=== PATIENT | male | born 1955 | race Caucasian/White ===

== ENCOUNTER → 2020-09-11 00:55 | Outpatient (CLI) | payer BC, SELFPAY ==
[2020-09-11 20:47] LABS: SARS-CoV-2 RNA PCR Negative
== END ==
PROVIDERS: Visit Provider Internal Medicine Gastroenterology
DX: Z01.812 Encounter for preprocedural laboratory examination (principal); Z20.822 Contact with and (suspected) exposure to COVID-19
CPT/HCPCS: C9803; U0003; U0005

== ENCOUNTER 2020-09-14 01:26 | Day surgery (SDC) | payer BC, SELFPAY ==
[2020-09-05 08:25] VITALS: BMI 27.0
[2020-09-14 07:49] VITALS: BP 154/98; PULSE 62; RESP 20; TEMP 36.7; O2SAT 100
[2020-09-14] MEDS: LACTATED RINGERS 1,000 ML 150 ML IV CONT (07:51)
--- NOTE | 2020-09-14 08:18 | PM.HPGS ---
History of Present Illness History of Present Illness Consent: Risks, benefits, and alternatives have been discussed and questions answered. Patient agrees to proceed with procedure. Chief complaint: hx of colon polyps Narrative: Jose C Preciado is a 64 year old male referred for colon cancer screening. He has had polyps removed in the past Review of Systems Review of Systems: All systems reviewed & are unremarkable except as noted in HPI and below PMFSH Social History Social History Substance use type: does not use Living arrangements: with family Gender identity (if verbalized by the patient): Male Meds Home Medications and Allergies Home Medications Medication Instructions Recorded Confirmed Type fluticasone propionate [Flonase] 1 spray INTRANASAL BID 09/05/20 09/14/20 History ketotifen fumarate [Zaditor] 2 drp EACH EYE DAILY 09/05/20 09/14/20 History Allergies Allergy/AdvReac Type Severity Reaction Status Date / Time No Known Allergies Allergy Verified 09/14/20 07:47 Vital Signs Vital Signs - 24 hr 09/14/20 07:49 Temperature 36.7 C Pulse Rate 62 Respiratory Rate 20 Blood Pressure 154/98 H Pulse Oximetry 100 Exam Resp: Auscultation: clear to auscultation bilaterally Cardio: Rate: regular rate Rhythm: regular rhythm GI: GI Palp: Yes Soft to palpation and No Tenderness to palpation present (GI) Assessment and Plan Assessment and plan (1) Colon cancer screening: Code(s): Z12.11 - Encounter for screening for malignant neoplasm of colon Status: Acute Assessment and Plan: Colonoscopy with possible biopsy or polypectomy or cautery or injection of substances.
--- NOTE | 2020-09-14 08:35 | P.PNAN_ITS ---
Anes - Initial Pre Proc Eval Procedure: Operation Date: 09/14/20 09:00 Proposed Procedures p Screening Colonoscopy - Miguelangel Fragoso MD Date/Time: 09/14/20 08:35 Surgeon: Miguelangel Fragoso MD Pre Op Diagnosis: hx of colon polyps Patient Data Age: 64 Gender: M Height: 6 ft 2 in Weight: 97 kg Last Vital Signs Temp 98.1 F 09/14/20 07:49 Pulse 62 09/14/20 07:49 Resp 20 09/14/20 07:49 BP 154/98 H 09/14/20 07:49 Pulse Ox 100 09/14/20 07:49 Allergies Allergy/AdvReac Type Severity Reaction Status Date / Time No Known Allergies Allergy Verified 09/14/20 07:47 Home Medications Medication Instructions Recorded Confirmed Type fluticasone propionate [Flonase] 1 spray INTRANASAL BID 09/05/20 09/14/20 History ketotifen fumarate [Zaditor] 2 drp EACH EYE DAILY 09/05/20 09/14/20 History Patient hx anesthesia problems: none Family hx anesthesia problems: none [facility] Past Medical History Medical History (Updated 09/14/20 @ 08:35 by Cooper Owusu MD) GERD (gastroesophageal reflux disease) Social History Social History Substance use type: does not use Living arrangements: with family Gender identity (if verbalized by the patient): Male Anes - Eval Final PreProcedure Day of Procedure 09/14/20 08:35 Patient weight: normal Heart: regular rate and rhythm Lungs: clear to auscultation Airway: Mallampati scale class II Neurological: alert and oriented Last oral intake: >/= 8 hours ASA classification: II Emergent: no Anesthetic plan: proceed Anesthesia type and monitoring: general GIVS and standard monitoring Informed Consent: The patient's anesthetic plan and its attendant risks and benefits were discussed with the patient/family/POA. Questions were solicited and answers provided to the satisfaction of the patient/family/POA.
[2020-09-14 09:04] VITALS: BP 121/83; PULSE 63; RESP 28; O2SAT 100
[2020-09-14 09:14] VITALS: BP 129/94; PULSE 62; RESP 18; O2SAT 100
[2020-09-14 09:24] VITALS: BP 144/93; PULSE 58; RESP 17; O2SAT 100
== END 2020-09-14 09:34 | disposition home or self-care (01) ==
PROVIDERS: Visit Provider Internal Medicine Gastroenterology
PROC: 0DJD8ZZ Inspection of Lower Intestinal Tract, Via Natural or Artificial Opening Endoscopic (ICD-10-PCS; CPT 45378; principal; 2020-09-14 09:00)
DX: Z12.11 Encounter for screening for malignant neoplasm of colon (principal); Z86.010 Personal history of colon polyps; K57.30 Diverticulosis of large intestine without perforation or abscess without bleeding; K64.8 Other hemorrhoids; K21.9 Gastro-esophageal reflux disease without esophagitis
CPT/HCPCS: 45378; J2704; J7120

== ENCOUNTER 2021-09-19 09:19 | Outpatient (CLI) | payer BC, SELFPAY ==
--- NOTE | ~2021-09-19 | MR_ITS ---
EXAMINATION: MR pelvis wo/w con DATE: 09/19/2021 11:06 INDICATION: Swelling of perineal tissue TECHNIQUE: Magnetic resonance imaging (MRI) of the pelvis was performed without and with 19 mL Multih ance intravenous contrast. Full-field sequences of the pelvis included axial and coronal T2-weighted SS FSE, coronal 2D FIESTA, axial T1-weighted FSPGR, axial dual-echo T1-weighted FSPGR and axial T1 we ighted LAVA. Small field of view sequences included axial, sagittal and coronal T2-weighted FSE cent ered on the uterus and adnexa. Postcontrast sequences included a time course axial T1-weighted LAVA with full-field of view of the pelvis. COMPARISON: None. FINDINGS: Bone alignment is normal with normal marrow signal throughout. Moderate sigmoid diverticulosis withou t adjacent inflammatory change to suggest diverticulitis. Remainder of the visualized bowels are norm al. Bladder is normal. Prostatomegaly measuring 5.0 x 4.0 cm. Small bilateral fat-containing inguinal hernias. There is a reticular pattern of low signal intensity with minimal associated non masslike e nhancement in the subcutaneous fat at the perineum without significant associated fluid signal to sug gest edema. No discrete nodules identified. No abscess or other abnormal fluid collections. No pathol ogically enlarged pelvic or inguinal lymphadenopathy. IMPRESSION: 1. Low signal intensity and mildly enhancing reticular pattern in the perineal subcutaneous fat which given the provided history of a single seed injury could represent mild fibrosis along the spectrum of progression towards perineal nodular induration. 2. Sigmoid diverticulosis. 3. Prostatomegaly. Reviewed, dictated and finalized at location A. IMPRESSION: 1. Low signal intensity and mildly enhancing reticular pattern in the perineal subcutaneous fat which given the provided history of a single seed injury could represent mild fibrosis along the spectrum of progression towards perineal nod ular induration. 2. Sigmoid diverticulosis. 3. Prostatomegaly.
[2021-09-19 10:09] LABS: Estimated Glomerular Filt Rate > 60
== END 2021-09-19 09:20 | disposition home or self-care (01) ==
PROVIDERS: Visit Provider Urology
DX: R22.2 Localized swelling, mass and lump, trunk (principal); N40.0 Benign prostatic hyperplasia without lower urinary tract symptoms; K57.30 Diverticulosis of large intestine without perforation or abscess without bleeding
CPT/HCPCS: 72197; A9577

== ENCOUNTER 2024-11-08 08:27 | Outpatient (CLI) | payer MEDICARE, SELFPAY ==
--- NOTE | 2024-12-03 19:48 | WPDSLEEPSTUD ---
Sleep Study Date of Study: 11/08/24 Ordering Provider: Andrés Holm, Interpreting Physician: Modesta Santos MD Sleep Study Type: Polysomnogram Height: 1.88 m Weight: 97.522 kg Body Mass Index: 27.6 Neck Circumference (inches): 16 [place]: 14 Reason for Sleep Study Hypersomnolence Sleep History Jose C Preciado is a 69-year-old man with obstructive sleep apnea who stop using CPAP during the pandemic, he was concerned about infection. He continues to have snoring and is bothered by his severe sleep apnea symptoms. He occasionally awakens from sleep feeling short of breath. He never wakes at night with heartburn, belching or coughing.??He constantly snores loudly enough that others complain. He rarely has trouble sleeping when he has a cold. He occasionally wakes up gasping for breath during the night. He frequently has breathing problems at night. He never sweats excessively at night. He occasionally notices his heart pounding or beating irregularly during the night. He frequently falls asleep during the day. He rarely falls asleep involuntarily, however he does rarely fall asleep while driving. He never experiences loss of muscle tone with strong emotion. He never has daytime difficulty at work due to excessive sleepiness. He never feels paralyzed on waking or falling asleep. He does not report having vivid dreams upon waking or falling asleep. He never feels afraid of going to sleep. He never has nightmares. He occasionally recalls his dreams. He occasional has thoughts racing through his mind. He never feels sad or depressed. He rarely feels anxiety. He never notices parts of his body jerk. He never kicks during the night. He never feels crawling or aching feelings in his legs. He never feels leg pain at night. He never has morning jaw pain, frequently grinds his teeth at night. He never feels bothered by pain during the day, never awakened by pain during the night. He occasionally wakes up feeling stiff in the morning, and he rarely wakes feeling sore or achy. He never awakens with pain in his neck, spine, or joints. Normal bedtime is 9:30 p.m., falling asleep within 5 minute, waking between 1 and 3 times at night. He awakens to roll over, may be able to return to sleep within 10-30 minutes. Wake time is 5:30 a.m.. He keeps the same schedule on weekends. He estimates getting between 7 and 8 hours of sleep at night. He takes naps in the day, and a 10-15 minute nap may be refreshing. He feels better in the morning compared to other times of day. Habits:??Tobacco: Quit smoking 30 years ago Caffeine: 1 cup of coffee daily Alcohol: Occasional alcoholic beverage Recreational substances: none [facility] Past Medical History Medical History Asthma Obstructive sleep apnea GERD (gastroesophageal reflux disease) Social History Social History Substance use type: does not use Living arrangements: with family Gender identity (if verbalized by the patient): Male Medications Home Medications ?Medication ?Instructions ?Recorded ?Confirmed ?Type fluticasone propionate 50 1 spray intranasal BID 09/05/20 09/14/20 History mcg/actuation nasal spray,suspension ketotifen fumarate 0.025 % (0.035 2 drp EACH EYE DAILY 09/05/20 09/14/20 History %) eye drops (Zaditor) Sleep Procedure A full night polysomnogram using the Mimoco multi-channel system recorded the standard physiologic parameters including EEG, EOG, submentalis EMG, anterior tibialis EMG, EKG, body position, nasal and oral airflow using nasal pressure sensor and thermistor. Respiratory parameters of chest and abdominal movements were recorded with Respiratory Inductance Plethysmography belts. Oxygen saturation was recorded by pulse oximetry. Video monitoring was also performed. Sleep stages, periodic limb movements, and EEG arousals were scored in 30 second epochs according to the criteria of the AASM Scoring Manual. The Apnea-Hypopnea Index was calculated using CMS guidelines for definition of hypopnea with 4% O2 desaturations while scoring respiratory events. Sleep Architecture The total recording time was 504.6 minutes. The total sleep time was 368.5 minutes. Sleep latency was 7.8 minutes. REM latency was 170.0 minutes. Sleep efficiency was 73.0%. The patient had 44 awakenings for an awakening index of 7.2. Wake after sleep onset time was 128.0 minutes. The patient spent 76.5 minutes, 20.8% of total sleep time in Stage N1. The patient spent 235.0 minutes, 63.8% in Stage N2. The patient spent no time Stage N3. The patient spent 57.0 minutes, 15.5% in Stage REM sleep. Respiratory Analysis The patient had no hypopneas, 77 obstructive apneas, no mixed apneas, and no central apneas for an overall Apnea Hypopnea Index of 12.5. The REM Apnea Hypopnea Index was 4.2. The NREM Apnea Hypopnea Index was 14.1. The patient had a Central Apnea Hypopnea Index of 0. There were no Respiratory Effort Related Arousals. The Respiratory Disturbance Index is 13.4 events per hour. There was no evidence of Igor-Caal Respirations. The supine apnea-hypopnea index is 29.4, the nonsupine apnea-hypopnea index is 9.8. Arousals There were 206 total arousals for an arousal index of 33.5. There were 125 spontaneous arousals for an index of 20.4. There were 69 arousals due to respiratory events for an index of 11.2. There were 5 arousals due to periodic limb movements for an index of 0.8. There were 7 arousals due to isolated limb movements for an index of 1.1. Periodic Limb Movements The patient had 46 isolated limb movements with an index of 7.5. The patient had 54 periodic limb movements with an index of 8.8. Patient had a total of 100 limb movements with a total limb movement index of 16.3. Oximetry Data The patient had an average oxygen saturation of 97.1% in sleep with a minimum oxygen saturation of 92% and a maximum oxygen saturation of 100%. The patient had 3 oxygen desaturations that were 4% or greater resulting in an Oxygen Desaturation Index of 0.5. The patient spent no time with an oxygen saturation below 88%. Snoring Profile Snoring was mild to moderate, and occurred intermittently. Cardiac Profile The EKG showed normal sinus rhythm, average pulse rate of 49.1 bpm with a minimum pulse of rate of 40 bpm and a maximum pulse rate of 84 bpm. No arrhythmias noted. EEG Profile Unremarkable, no evidence of seizures. Assessment and Plan Assessment and Plan (1) Obstructive sleep apnea: Code(s): G47.33 - Obstructive sleep apnea (adult) (pediatric) Status: Acute Assessment and Plan: This basic nocturnal polysomnogram shows mild obstructive sleep apnea, the apnea hypopnea index is 12.5, with a positional component, supine AHI is 20.4, mild to moderate snoring and desaturation to 92%. He has hypersomnolence with episodes of rarely falling asleep behind the wheel while driving. With this condition, he should be treated with PAP therapy. I recommend that this patient be prescribed Resmed AirSense 11 AutoPAP 5-15 cm H2O, CPAP mask/filters/tubing and humidifier chamber. This should be used with all episodes of sleep. Compliance should be reviewed within 31-90 days of starting therapy for usage greater than 4 hours per night greater than 70% of the nights. The patient should be asked about symptoms such as excessive daytime sleepiness, quality of sleep, decreased nocturia, increased mental functioning such as memory, mood, and concentration. He should be reminded not to drive while sleepy. He reports grinding his teeth at night. This polysomnogram did not show bruxism. Patient is encouraged to speak with his dentist to address possible bruxism. Data The data obtained during this sleep study is adequate for interpretation. Certification This sleep study has been reviewed by a board certified sleep medicine physician.
[2024-12-05 11:48] VITALS: BMI 27.6
== END 2024-11-09 06:34 | disposition home or self-care (01) ==
LOC: ANHCSM 08:39
PROVIDERS: Visit Provider Otolaryngology
DX: G47.33 Obstructive sleep apnea (adult) (pediatric) (principal)
CPT/HCPCS: 95810

== ENCOUNTER 2024-12-09 06:54 | Inpatient (IN) | payer MEDICARE, SELFPAY ==
[2024-12-09] VITALS (39 sets, daily range): BP systolic 115–169; BP diastolic 68–110; PULSE 36–65; RESP 10–22; TEMP 36.4–36.7; O2SAT 98–100; BMI 27.8
--- NOTE | ~2024-12-09 | XR_ITS ---
EXAMINATION: XR chest 2V 12/09/2024 07:55 INDICATION: Chest pain and asthma PROCEDURE: 2 view chest COMPARISON: No prior studies for comparison. FINDINGS: The lungs are clear. The cardiomediastinal silhouette is within normal limits. There are no pleural effusions. There is no pneumothorax suspected. IMPRESSION: 1: NO ACUTE CARDIOPULMONARY DISEASE. Reviewed, dictated and finalized at location A.
--- OUTSIDE RECORDS SUMMARY | 2024-12-09 06:56 | XMS_ITS | Encounter Summary ---
Author Organization [facility] Address [address] [place] [address] Care Team Providers Care Oil Well Shooter Name Role Phone Unavailable Primary Care Provider Unavailabl e Encounter Details Date Type Department Care Team (Late st Contact Info) Description 10/02/2022 Lab Requisition [facility] - DermPath Lab [address] [place] [id number] Jake Clemens MD [id number] [place] [id number] Social History Tobacco Use Types Packs/Day Years Used Date Smoking Tobacco: Never Assessed Sex and Gender Information Value Date Recorded Sex Assigned at Not on file Legal Sex Male 10:10 AM CDT Gender Identity Not on file Sexual Orientation Not on file documented as of this encounter Plan of Treatment Not on file documented as of this encounter Procedures Procedure Name Priority Date/Time Associated Diagnosis Comments DERMATOPATHOLOGY Routine 09/30/2022 12:0 0 AM CDT documented in this encounter Results * DERMATOPATHOLOGY (09/30/2022 12:00 AM CDT) Case Report Dermatopathology Report Case: [id number] Authorizing Provider: Jake Clemens MD Collected: 09/30/2022 12:00 AM Ordering Location: [facility] Received: 10/02/2022 10:20 AM Pathologist: Aby Brar MD Specimens: A) - Skin, right upper forehead B) - Skin, right deltoid 11:01 AM CDT DERMATOPATHOLOGY LABORATORY Final Diagnosis Specimen A. SKIN, right upper forehead: BASAL CELL CARCINOMA, NODULAR TYPE (C44.319) Specimen B. SKIN, right deltoid: BASAL CELL CARCINOMA, SUPERFICIAL MULTIFOCAL (C44.612) 11:01 AM CDT DERMATOPATHOLOGY LABORATORY at 1101 CDT Clinical History A: BCCA. Path#[id number] B: BCCA. Path#[id number] 11:01 AM T DERMATOPATHOLOGY LABORATORY Gross Description Specimen A: Received is one formalin filled container labeled with the patient's name and designated right upper forehead. The specimen consists of a shave biopsy measuring 6x3x1 and 4x5x1 mm. Jar 0. Specimen B: Received is one formalin filled container labeled with the patient's name and designated right deltoid. The specimen consists of a shave biopsy measuring 5x3x1 mm. Jar 0. 11:01 AM [facility] DERMATOPATHOLOGY LABORATORY Microscopic Description Specimen A. SKIN, right upper forehead: Within the dermis there are aggregates of basaloid cells with a high nuclear to cytoplasmic ratio and peripheral palisading. Specimen B. SKIN, right deltoid: Attached to the undersurface of the epidermis, there are small aggregates of basaloid cells with a high nuclear to cytoplasmic ratio and peripheral palisading. 11:01 AM [facility] DERMATOPATHOLOGY LABORATORY Disclaimer An external and internal positive and negative controls are appropriate for the histochemical, immunohistochemical and immunofluorescence stain(s) in this case (if any), except where stated explicitly. The performance characteristics of the stain(s) cited in this report were developed and its performance characteristic determined by the Dermatopathology Laboratory at [facility], directed by Dr. Pallavi Flood. These tests need not be, and therefore are not, approved by the [place] Food and Drug Administration. The tests are used for clinical purposes. Billing Codes Specimen Charges Stain Charges 32638 75256 1 1 3 11:01 AM T DERMATOPATHOLOGY LABORATORY Embedded Images 3 11:01 AM T DERMATOPATHOLOGY LABORATORY Pathology/Cytology TISSUE SPECIMEN FROM SKIN / Unknown 09/30/2022 10/02/2022 10:20 AM CDT Miscellaneous samples (specimen) TISSUE SPECIMEN FROM SKIN / Unknown 09/30/2022 10/02/2022 10:20 AM CDT us Jake Clemens MD LAB - PATHOLOGY/CYTOLOGY ORDER [place] Final Result DERMATOPATHOLOGY LABORATORY [facility] - Department of Dermatology [facility] [address] [place] [address], [address] [phone] documented in this encounter Visit Diagnoses Not on filedocumented in this encounter
--- OUTSIDE RECORDS SUMMARY | 2024-12-09 06:56 | XMS_ITS | Clinical Summary ---
Author Organization [facility] Care Team Providers Care Last Waxer Name Role Phone Len Chou DO Primary Care Provider Allergies No known active allergies Medications fluticasone propionate (FLONASE) 50 mcg/actuation nasal spray Administer 1 spray into each nostril daily Active ibuprofen (ADVIL,MOTRIN) 600 mg tablet Take 1 tablet (600 mg total) by mouth every 6 (six) hours as needed for pain Active celecoxib (CeleBREX) 200 mg capsuleIndicatio ns:Acute internal derangement of left knee Take 1 capsule (200 mg total) by mouth daily for 21 days 21 capsule Active Active Problems No known active problems Social History Tobacco Use Types Packs/Day Years Used Date Smoking Tobacco: Never Smokeless Tobacco: Never Tobacco Cessation:Counseling Given: Not Answered AUDIT-C Answer Date Recorded Q1: How often do you have a drink containing alc ohol? Never 05/24/2024 Average Number of Drinks Not on file 025 Frequency of Binge Drinking Not on file 11/2024 Sex and Gender Information Value Date Recorded Sex Assigned at Not on file Legal Sex Male 9:18 AM CDT Gender Identity Not on file Sexual Orientation Not on file Obstetrics History Last Filed Vital Signs Vital Sign Reading Time Taken Comments Blood Pressure 165/98 05/24/2024 11:07 AM AGRONOMY ADVISOR Pulse 91 05/24/2024 11:07 AM AGRONOMY ADVISOR Temperature - - Respiratory Rate - - Oxygen Saturation - - Inhaled Oxygen Concentration - - Weight 100.4 kg (221 lb 6.4 oz) 025 11:07 AM AGRONOMY ADVISOR Height 188 cm (6' 2) 05/24/2024 11:07 AM AGRONOMY ADVISOR Body Mass Index 28.43 05/24/2024 11:07 AM AGRONOMY ADVISOR Plan of Treatment Health Maintenance Due Date Last Done Comments Colon Cancer Screening-Colonoscopy 1955 Depression Screening 1956 Fall Risk Assessment 1956 Hepatitis C Screening 1956 Prostate Cancer Screening-PSA 1956 Hepatitis B Screening 1974 Pneumococcal vaccine 65+ (1 of 1 - PCV) 2006 Well Visit 65+ 2021 Covid-19 Vaccine (4 - 2023-2 5 season) 2024 04/29/2021, 08/27/2020, 08/06/2020 Influenza Vaccine (#1) 2025 , 04/02/2022, 04/16/2021, Additional history exists DTaP/Tdap/Td Vaccine (3 - Td or Tdap) 05/18/2029 05/18/2019, 02/22/2019 Zoster Vaccine Completed 12/20/2021, 08/08/2021 [place] [address] MEDICARE [employer] MEDICARE SUPPLEMENT Care Teams Last Waxer Relationship Specialty Start Date End Date Len Chou DO [address] [facility] [address] [place] [address] PCP - General Orthopedic Surgery 05/23/24
--- OUTSIDE RECORDS SUMMARY | 2024-12-09 06:56 | XMS_ITS | Clinical Summary ---
Author Organization [facility] Address [address] [place] [address] Care Team Providers Care Case Monitor Name Role Phone Unavailable Primary Care Provider Unavailabl e Source Comments [facility],non-owned Affiliates and Associated Physician Practices is amultiple site organization consisting of ambulatory clinics and hospital sitesin [place], [place], [place] and [place]. This disclosure is being madepursuant to the Care Everywhere program and may not contain all information available regarding this patient. Last updated 18.[facility] Social History Tobacco Use Types Packs/Day Years Used Date Smoking Tobacco: Never Assessed Sex and Gender Information Value Date Recorded Sex Assigned at Not on file Legal Sex Male 10:10 AM CDT Gender Identity Not on file Sexual Orientation Not on file Plan of Treatment Health Maintenance Due Date Last Done Comments COLOGUARD (AGES 45-75) - COL ON CA SCREENING 1956 COLON MONITORING 1956 COLONOSCOPY - COLON CA SCREENING 1956 CT COLONOGRAPHY - COLON CA SCREENING 1956 Colorectal Cancer Screening 1956 FIT - COLON CA SCREENING 1956 FLEX SIG - COLON CA SCREENING 1956 LIPID TESTING 1955 MEDICARE AWV 12 MONTHS 1956 HEPATITIS C SCREENING 09/20/1974 DTAP/TDAP/TD VACCINES (1 - Tdap) 09/25/1975 PNEUMOCOCCAL VACCINE 50+ (1 of 1 - PCV) 2006 ZOSTER VACCINE (1 of 2) 2006 COVID-19 VACCINE ( - 2023-2 5 season) 2024 DEPRESSION SCREENING 05/18/2024 INFLUENZA VACCINE (#1) 2025 Respiratory Syncytial Virus (RSV) Vaccine Pt: or over 60 yrs (1 - 1-dose 75+ series) 09/25/2031 HEPATITIS B VACCINE Aged Out No longe r eligible based on patient's age to complete this topic HIB VACCINE Aged Out No longer eligi ble based on patient's age to complete this topic HPV VACCINE Aged Out No longer eligi ble based on patient's age to complete this topic MENINGOCOCCAL (Group B) VACC INE SHARED DECISION-MAKING Aged Out No longer eligibl e based on patient's age to complete this topic MENINGOCOCCAL GROUPS A/C/Y/W VACCINE Aged Out No longer eligible b ased on patient's age to complete this [place] [address] MEDICARE [facility]
--- OUTSIDE RECORDS SUMMARY | 2024-12-09 06:56 | XMS_ITS | Data Portability ---
Author Organization [place] - [facility], [facility]_ Family Practice Address [address] [place] [address] Care Team Providers Care Tour Actor Name Role Phone YOCASTA PHILLIPS Referring Provider YOCASTA PHILLIPS Primary Care Provider [phone] Assessment Encounter Date Assessment Date Assessment LastModified by Organization Details LastModified Time 09/10/2022 09/10/2022 I attest that either myself or a member of my physician group provided supervision of the services rendered. Either myself or a member of my physician group was available in the office suite to render assistance, if needed. [email or web address] Not available 09/08/2022 10:22:00 09/23/2023 09/23/2023 Patient presente d to office today for their Medicare Annual Wellness Visit. Education was provided on healthy nutrition, including a diet rich in fruits and vegetables, minimizing simple carbohydrates, salt, and saturated fats. Encouraged regular cardiovascular exercise such as walking at least 30 minutes daily, 5 times per week. Emphasized preventive health measures and educated pt on fall prevention and community-based lifestyle interventions to help reduce health risks and promote healthy living. Chronic medical conditions reviewed and recommend management as below. [email or web address] Not available 09/23/2023 08:32:16 09/23/2024 09/23/2024 Patient presente d to office today for their Medicare Annual Wellness Visit. Education was provided on healthy nutrition, including a diet rich in fruits and vegetables, minimizing simple carbohydrates, salt, and saturated fats. Encouraged regular cardiovascular exercise such as walking at least 30 minutes daily, 5 times per week. Emphasized preventive health measures and educated pt on fall prevention and community-based lifestyle interventions to help reduce health risks and promote healthy living. Chronic medical conditions reviewed and recommend management as below. [email or web address] Not available 09/23/2024 08:56:13 Plan of Treatment Reminders Order Date Submit Date Provider Last Modified By Organization Details Last Modified Time Details Appointments None recorded. Lab PSA, serum or plasma 2024 025 [email or web address], [address], [place], [address], 5 14:19:10 PSA, serum or plasma 2023 024 [facility], [address], [place], [address], 4 08:41:08 CBC w/ auto diff 2023 024 [facility], [address], [place], [address], 4 08:41:07 CMP, serum or plasma 2023 024 [facility], [address], [place], [address], 4 08:41:06 lipid panel, serum 2023 024 [employer], [address], [place], [address], 4 08:41:06 CBC w/ auto diff 2022 023 [facility], [address], [place], [address], 3 07:11:53 CMP, serum or plasma 2022 023 [facility], [address], [place], [address], 3 07:11:54 PSA, serum or plasma 2022 023 [email or web address] [facility], [address], [place], [address], 3 14:07:17 lipid panel, serum 2022 023 [facility] [employer] [facility], [address] , [place], [address], 3 07:11:54 Referral sleep medicine referral 2024 025 [facility], [address] [facility], [place], [address], 5 17:55:09 Procedures None recorded. Surgeries None recorded. Imaging electrocard iogram 2022 023 [email or web address] 9 [facility], [address] [place] [address], [address], 15:09:02 Medication Orders None recorded. Patient TargetsNo targets recorded. Patient Instructions Encounter Date Encounter Id Patient Instructions Last Modified By Organization Details Last Modified Time 09/10/[id number] depression screening* Not available 09/10/2022 15:07:45 alcohol misuse* Not available 09/10/2022 15:07:45 visual acuity* Not available 0 09/10/2022 15:07:45 multi-dimensiona health assessment questionnaire* Not available 09/10/2022 15:07:44 care plan* Not available 09/10 15:07:45 advance care planning: care instructions Not available 09/10/2022 15:07:45 advance directiv es: care instructions Not available 09/10/2022 15:07:45 body mass index: care instructions Not available 09/10/2022 15:07:45 body mass index information Not available 09/10/2022 15:07:45 Personalized Hea lt Plan and Screening Recommendations Advance Directives - Do you have one? Yes Advance Directives - Do we have your advance directive on file in your health record? No, please bring in a copy at your earliest convenience Primary Prevention/Interven tion (prevents or decreases the chance of common diseases from occurring) Smoking Risk: Non Smoker Pt is nonsmoker Alcohol Misuse Screening: Negative Pt denies ETOH misuse Weight: Overweight try to lose 10% of your body weight Physical activity: Appropriate physical activity minimum of 20-30 minutes activity that causes mild breathlessness/day Nutrition: Average Refer to attached handout Heart-Healthy Diet: After Your Visit Fall Risk (screened today): Low Refer to attached handout Preventing Falls: After your Visit Vaccines Pneumococcal: Ordered Influenza: Your next one in the fall of this year Chronic Disease Risks Stroke: Low Risk I have no recommendations Heart Attack: Low risk I have no recommendations Clogging of the Arteries: Low risk I have no recommendations Diabetes: Low Risk I have no recommendations Secondary Prevention/Interven tion (detects treatable diseases before they may cause symptoms, disability, or ) Prostate Cancer Screening: Your next PSA in: now Colon Cancer Screening: Colonoscopy In: 5 years Date Screening Last Performed: 09/14/20 Eye Disease Screening: Recommended today Dementia Risk: Low I have no recommendations Depression Screening: Negative Per PHQ screening tool [email or web address] Not available 09/10/2022 14:36:52 HRA reviewed zeina aguilar patient, preventative screening scheduled provided to patient [email or web address] Not available 09/08/2022 10:30:10 09/23/2023 [id number] fall risk assessment* Not available 09/23/2023 15:10:37 advance care planning: care instructions Not available 09/23/2023 15:10:37 [place] Advance Directives Not available 09/23/2023 15:10:37 care plan* NELSON Not available 09/22 15:51:36 Personalized [facility] lt Plan and Screening Recommendations Advance Directives - Do you have one? Yes Advance Directives - Do we have your advance directive on file in your health record? No, please bring in a copy at your earliest convenience Primary Prevention/Interven tion (prevents or decreases the chance of common diseases from occurring) Smoking Risk: Non Smoker Alcohol Misuse Screening: Negative Substance/Opioid Use Disorder Risk: Negative Pain Plan: no pain or pain under adequate control Fall Risk (screened today): Low Vaccines Pneumococcal: No further needed Influenza: Your next one in the fall of this year Tdap: Your next one in: 5 years Shingrix: No further needed Secondary Prevention/Interven tion (detects treatable diseases before they may cause symptoms, disability, or ) Prostate Cancer Screening: Your next PSA in: nowDate Screening Last Performed: ___1 year Colon Cancer Screening: Colonoscopy In:2 years Date Screening Last Performed: __09/14/20 AAA Screening: No screening necessary Date Screening Last Performed: Cognitive Impairment (based on my direct observations and reported observations from patient and family): Not present Depression Screening: Negative Not available 09/23/2023 15:08:29 09/23/2024 [id number] fall risk assessment* [email or web address] Not available 10/21/2024 08:31:20 advance care planning: care instructions Not available 09/23/2024 11:55:51 [place] Advance Directives Not available 09/23/2024 11:55:50 care plan* [email or web address] Not available 09/23 12:12:53 Personalized a lth Plan and Screening Recommendations Advance Directives - Do you have one? No I recommend consulting with an Laboratory Mechanic Helper, family member, or friend to assist you. Advance Directives - Do we have your advance directive on file in your health record? No, please bring in a copy at your earliest convenience Primary Prevention/Interven tion (prevents or decreases the chance of common diseases from occurring) Smoking Risk: Non Smoker Alcohol Misuse Screening: Negative Substance/Opioid Use Disorder Risk: Negative Pain Plan: no pain or pain under adequate control Fall Risk (screened today): Low Vaccines Pneumococcal: Your next one in: 3 years Influenza: Your next one in the fall of this year Tdap: Your next one in: 4 years Shingrix: No further needed Secondary Prevention/Interven tion (detects treatable diseases before they may cause symptoms, disability, or ) Prostate Cancer Screening: Your next PSA in: nowDate Screening Last Performed: Colon Cancer Screening: Colonoscopy In: 1 year Date Screening Last Performed: __2020 AAA Screening: No screening necessary Date Screening Last Performed: Cognitive Impairment (based on my direct observations and reported observations from patient and family): Not present Depression Screening: Negative Not available 09/23/2024 11:39:52 Reason for Referral Sleep Medicine Referral for Sleep apnea Referring Physician: Yocasta Phillips, Family Medicine, Encounter Date: 09/23/2024 Results Created Date Observation Date Name Description Value Unit Range Abnormal Flag Note LastModifiedBy Organization Detail LastModifiedTime 08/24/19 22 08/23/2021 AMBIG ABBRE V LP DEFAU LT ambig abbrev LP default commen t A hand- writt en panel /prof ile was recei reggie from your offic e. In accor dance with the [facility] Ambig uous Test Code Polic y dated November 2002, we have compl eted your order by using the close st curre ntly or forme rly recog nized AMA panel . We have bj ashford Lipid Panel , Test Code #30[address]. If this is not the testi ng you wishe d to recei ve on this speci men, pleas e conta ct the [facility] Clien t Inqui ry/Te chnic al Servi frank Depar tment to corina fy the test order . We appre ciate your busin ess. Not Available [facility] [address] [facility], [place], [address], 08/24/2021 08:37:36 08/24/19 22 08/23/2021 AMBIG ABBRE V CMP14 DEFAU LT ambig abbrev CMP14 default commen t A hand- writt en panel /prof ile was recei reggie from your offic e. In accor dance with the [facility] Ambig uous Test Code Polic y dated November 2002, we have compl eted your order by using the close st curre ntly or forme rly recog nized AMA panel . We have assig makeda Compr ehens alena Metab olic Panel (14), Test Code #[address]. If this is not the testi ng you wishe d to recei ve on this speci men, pleas e conta ct the [facility] Clien t Inqui ry/Te chnic al Servi frank Depar tment to corina fy the test order . We appre ciate your busin ess. Not Available [facility] ([facility]) [address] [facility], [place], [address], 08/24/2021 08:37:36 08/24/19 22 08/24/2021 PROST ATE-S PECIF IC AG prostate specific Ag 3.0 NG/mL 0.0-4. 0 Ed ECLIA metho dolog y. Accor ding to the Ameri can Urolo g[employer] iatio n, Serum PSA shoul d decre ase and remai n at undet ectab le level s after radic al prost atect julianna. The AUA defin es bioch emica l recur rence as an initi al PSA value 0.2 ng/mL or great er follo wed by a subse quent confi rmato ry PSA value 0.2 ng/mL or great er. Value s obtai makeda with diffe rent assay metho ds or kits canno t be used inter winn eadavidy . Resul ts canno t be inter prete d as absol [place] evide nce of the prese nce or absen ce of lizzy gore se. Not Available [facility] ([facility]) [address] [facility], [place], [address], 08/24/2021 08:37:36 08/24/19 22 08/24/2021 LIPID PANEL cholesterol, total 193 mg/dL 100-19 9 Not Available [facility] ([facility]) [address] [facility], [place], [address], 08/24/2021 08:37:35 08/24/19 22 08/24/2021 LIPID PANEL triglyceride s 115 mg/dL 0-149 Not Available [facility] ([facility]) [address] [facility], [place], [address], 08/24/2021 08:37:35 08/24/19 22 08/24/2021 LIPID PANEL HDL cholesterol 41 mg/dL >39 Not Available [facility] ([facility]) [address] [facility] [place], [address], 08/24/2021 08:37:35 08/24/19 22 08/24/2021 LIPID PANEL VLDL cholesterol rox 21 mg/dL 5-40 Not Available [facility] ([facility]) [address] [facility] [place], [address], 08/24/2021 08:37:35 08/24/19 22 08/24/2021 LIPID PANEL LDL chol calc ([facility]) 131 mg/dL 0-99 above high normal Not Available [facility] (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) [address] [facility] [place], [address], 08/24/2021 08:37:35 08/24/19 22 08/24/2021 COMP. METAB OLIC PANEL (14) glucose 91 mg/dL 65-99 Not Available [facility] ([facility]) [address] [facility] [place], [address], 08/24/2021 08:37:35 08/24/19 22 08/24/2021 COMP. METAB OLIC PANEL (14) BUN 19 mg/dL 8-27 Not Available [facility] ([facility]) [address] [facility] [place], [address], 08/24/2021 08:37:35 08/24/19 22 08/24/2021 COMP. METAB OLIC PANEL (14) creatinine 0.93 mg/dL 0.76-1 .27 Not Available [facility] ([facility]) [address], [place], [address], 08/24/2021 08:37:35 08/24/19 22 08/24/2021 COMP. METAB OLIC PANEL (14) eGFR 92 mL/mi n/1.7 3 >59 Not Available [facility] ([facility]) [address], [place], [address], 08/24/2021 08:37:35 08/24/19 22 08/24/2021 COMP. METAB OLIC PANEL (14) BUN/creatini ne ratio 20 10-24 Not Available [facility] ([facility]) [address] [facility], [place], [address], 08/24/2021 08:37:35 08/24/19 22 08/24/2021 COMP. METAB OLIC PANEL (14) sodium 144 mmol/ L 134-14 4 Not Available [facility] ([facility]) [address] [facility], [place], [address], 08/24/2021 08:37:35 08/24/19 22 08/24/2021 COMP. METAB OLIC PANEL (14) potassium 4.5 mmol/ L 3.5-5. 2 Not Available [facility] ([facility]) [address] [facility], [place], [address], 08/24/2021 08:37:35 08/24/19 22 08/24/2021 COMP. METAB OLIC PANEL (14) chloride 106 mmol/ L 96-106 Not Available [facility] ([place] [facility]) [address] [facility], [place], [address], 08/24/2021 08:37:35 08/24/19 22 08/24/2021 COMP. METAB OLIC PANEL (14) carbon dioxide, total 21 mmol/ L 20-29 Not Available [facility] ([facility]) [address] [facility], [place], [address], 08/24/2021 08:37:35 08/24/19 22 08/24/2021 COMP. METAB OLIC PANEL (14) calcium 9.5 mg/dL 8.6-10 .2 Not Available [facility] ([facility]) [address] [facility], [place], [address], 08/24/2021 08:37:35 08/24/19 22 08/24/2021 COMP. METAB OLIC PANEL (14) protein, total 6.7 g/dL 6.0-8. 5 Not Available [facility] ([facility]) [address] [facility], [place], [address], 08/24/2021 08:37:35 08/24/19 22 08/24/2021 COMP. METAB OLIC PANEL (14) albumin 4.5 g/dL 3.8-4. 8 Not Available [facility] ([facility]) [address] [facility], [place], [address], 08/24/2021 08:37:35 08/24/19 22 08/24/2021 COMP. METAB OLIC PANEL (14) globulin, total 2.2 g/dL 1.5-4. 5 Not Available [facility] ([facility]) [address] [facility], [place], [address], 08/24/2021 08:37:35 08/24/19 22 08/24/2021 COMP. METAB OLIC PANEL (14) A/G ratio 2.0 1.2-2. 2 Not Available [facility] ([facility]) [address] [facility] [place], [address], 08/24/2021 08:37:35 08/24/19 22 08/24/2021 COMP. METAB OLIC PANEL (14) bilirubin, total 0.6 mg/dL 0.0-1. 2 Not Available [facility] ([facility]) [address] [facility] [place], [address], 08/24/2021 08:37:35 08/24/19 22 08/24/2021 COMP. METAB OLIC PANEL (14) alkaline phosphatase 53 IU/L 44-121 Not Available [facility] ([facility]) [address] [facility], [place], [address], 08/24/2021 08:37:35 08/24/19 22 08/24/2021 COMP. METAB OLIC PANEL (14) AST (SGOT) 23 IU/L 0-40 Not Available [facility] ([facility]) [address] [facility], [place], [address], 08/24/2021 08:37:35 08/24/19 22 08/24/2021 COMP. METAB OLIC PANEL (14) ALT (SGPT) 29 IU/L 0-44 Not Available [facility] ([facility]) [address] [facility], [place], [address], 08/24/2021 08:37:35 08/24/19 22 08/24/2021 CBC/D IFF AMBIG UOUS DEFAU LT WBC 5.9 x10e3 /uL 3.4-10 .8 Not Available [facility] ([facility]) [address] [facility], [place], [address], 08/24/2021 08:37:34 08/24/19 22 08/24/2021 CBC/D IFF AMBIG UOUS DEFAU LT RBC 4.94 x10e6 /uL 4.14-5 .80 Not Available [facility] ([facility]) [address] [facility], [place], [address], 08/24/2021 08:37:34 08/24/19 22 08/24/2021 CBC/D IFF AMBIG UOUS DEFAU LT hemoglobin 14.9 g/dL 13.0-1 7.7 Not Available [facility] ([facility]) [address] [facility], [place], [address], 08/24/2021 08:37:34 08/24/19 22 08/24/2021 CBC/D IFF AMBIG UOUS DEFAU LT hematocrit 44.0 % 37.5-5 1.0 Not Available [facility] ([facility]) [address] [facility], [place], [address], 08/24/2021 08:37:34 08/24/19 22 08/24/2021 CBC/D IFF AMBIG UOUS DEFAU LT MCV 89 fL 79-97 Not Available [facility] ([facility]) [address] [facility], [place], [address], 08/24/2021 08:37:34 08/24/19 22 08/24/2021 CBC/D IFF AMBIG UOUS DEFAU LT MCH 30.2 pg 26.6-3 3.0 Not Available [facility] ([facility]) [address] [facility], [place], [address], 08/24/2021 08:37:34 08/24/19 22 08/24/2021 CBC/D IFF AMBIG UOUS DEFAU LT MCHC 33.9 g/dL 31.5-3 5.7 Not Available [facility] ([facility]) [address] [facility], [place], [address], 08/24/2021 08:37:34 08/24/19 22 08/24/2021 CBC/D IFF AMBIG UOUS DEFAU LT RDW 12.9 % 11.6-1 5.4 Not Available [facility] ([facility]) [address] [facility], [place], [address], 08/24/2021 08:37:34 08/24/19 22 08/24/2021 CBC/D IFF AMBIG UOUS DEFAU LT platelets 284 x10e3 /uL 150-45 0 Not Available [facility] ([facility]) [address] [place], [address], 08/24/2021 08:37:34 08/24/19 22 08/24/2021 CBC/D IFF AMBIG UOUS DEFAU LT neutrophils 58 % not estab. Not Available [facility] ([facility]) [address] [facility], [place], [address], 08/24/2021 08:37:34 08/24/19 22 08/24/2021 CBC/D IFF AMBIG UOUS DEFAU LT lymphs 30 % not estab. Not Available [facility] ([facility]) [address] [facility], [place], [address], 08/24/2021 08:37:34 08/24/19 22 08/24/2021 CBC/D IFF AMBIG UOUS DEFAU LT monocytes 7 % not estab. Not Available [facility] ([facility]) [address] [facility], [place], [address], 08/24/2021 08:37:34 08/24/19 22 08/24/2021 CBC/D IFF AMBIG UOUS DEFAU LT eos 3 % not estab. Not Available [facility] ([facility]) [address] [facility], [place], [address], 08/24/2021 08:37:34 08/24/19 22 08/24/2021 CBC/D IFF AMBIG UOUS DEFAU LT basos 1 % not estab. Not Available [facility] ([facility]) [address] [facility], [place], [address], 08/24/2021 08:37:34 08/24/19 22 08/24/2021 CBC/D IFF AMBIG UOUS DEFAU LT immature cells wood tank erector Not Available [facility] ([facility]) [address] [facility], [place], [address], 08/24/2021 08:37:34 08/24/19 22 08/24/2021 CBC/D IFF AMBIG UOUS DEFAU LT neutrophils (absolute) 3.5 x10e3 /uL 1.4-7. 0 Not Available [facility] ([facility]) [address] [facility], [place], [address], 08/24/2021 08:37:34 08/24/19 22 08/24/2021 CBC/D IFF AMBIG UOUS DEFAU LT lymphs (absolute) 1.7 x10e3 /uL 0.7-3. 1 Not Available [facility] ([facility]) [address] [facility], [place], [address], 08/24/2021 08:37:34 08/24/19 22 08/24/2021 CBC/D IFF AMBIG UOUS DEFAU LT monocytes(ab solute) 0.4 x10e3 /uL 0.1-0. 9 Not Available [facility] ([facility]) [address] [facility], [place], [address], 08/24/2021 08:37:34 08/24/19 22 08/24/2021 CBC/D IFF AMBIG UOUS DEFAU LT eos (absolute) 0.2 x10e3 /uL 0.0-0. 4 Not Available [facility] ([facility]) [address] [facility], [place], [address], 08/24/2021 08:37:34 08/24/19 22 08/24/2021 CBC/D IFF AMBIG UOUS DEFAU LT baso (absolute) 0.1 x10e3 /uL 0.0-0. 2 Not Available [facility] ([facility]) [address] [facility], [place], [address], 08/24/2021 08:37:34 08/24/19 22 08/24/2021 CBC/D IFF AMBIG UOUS DEFAU LT immature granulocytes 1 % not estab. Not Available [facility] ([facility]) [address] [facility], [place], [address], 08/24/2021 08:37:34 08/24/19 22 08/24/2021 CBC/D IFF AMBIG UOUS DEFAU LT immature grans (abs) 0.0 x10e3 /uL 0.0-0. 1 Not Available [facility] ([facility]) [address] [facility], [place], [address], 08/24/2021 08:37:34 08/24/19 22 08/24/2021 CBC/D IFF AMBIG UOUS DEFAU LT NRBC wood tank erector Not Available [facility] (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 In accor dance with the [facility] Ambig uous Test Code Polic y dated November 2002, we have assig makeda CBC with Diffjacquie avery al/Jacob hernandez, Test Code #[address] If this is not the testi ng you wishe d to recei ve on this speci men, pleas e conta ct the [facility] Clien t Inqui ry/ Techn ical Servi frank Depar tment to cornia fy the test order . We appre ciate your busin ess. Not Available [facility] ([facility]) [address] [facility], [place], [address], 08/24/2021 08:37:34 09/11/19 23 09/10/2022 visua l acuit y* R Eye Uncorrected 20/25 Not Available [facility] [address], [address], 09/08/2022 10:21:15 09/11/19 23 09/10/2022 visua l acuit y* L Eye Uncorrected 20/25 Not Available [facility] [address], [address], 09/08/2022 10:21:15 09/11/19 23 09/10/2022 visua l acuit y* Both Eyes Uncorrected Not Available [facility] [address], [address], 09/08/2022 10:21:15 09/16/19 23 09/15/2022 CBC WITH DIFFE RENTI AL/PL ATELE T WBC 6.1 x10e3 /uL 3.4-10 .8 Not Available [facility] ([facility]) [address] [facility], [place], [address], 09/16/2022 07:11:53 09/16/1909/15/2022 CBC WITH DIFFE RENTI AL/PL ATELE T RBC 4.87 x10e6 /uL 4.14-5 .80 Not Available [facility] ([facility]) [address] [facility], [place], [address], 09/16/2022 07:11:53 09/16/1909/15/2022 CBC WITH DIFFE RENTI AL/PL ATELE T hemoglobin 14.7 g/dL 13.0-1 7.7 Not Available [facility] ([facility]) [address] [facility], [place], [address], 09/16/2022 07:11:53 09/16/1909/15/2022 CBC WITH DIFFE RENTI AL/PL ATELE T hematocrit 44.3 % 37.5-5 1.0 Not Available [facility] ([facility]) [address] [facility], [place], [address], 09/16/2022 07:11:53 09/16/1909/15/2022 CBC WITH DIFFE RENTI AL/PL ATELE T MCV 91 fL 79-97 Not Available [facility] ([facility]) [address] [facility], [place], [address], 09/16/2022 07:11:53 09/16/19 23 09/15/2022 CBC WITH DIFFE RENTI AL/PL ATELE T MCH 30.2 pg 26.6-3 3.0 Not Available [facility] ([facility]) [address] [facility], [place], [address], 09/16/2022 07:11:53 09/16/19 23 09/15/2022 CBC WITH DIFFE RENTI AL/PL ATELE T MCHC 33.2 g/dL 31.5-3 5.7 Not Available [facility] ([facility]) [address] [facility], [place], [address], 09/16/2022 07:11:53 09/16/19 23 09/15/2022 CBC WITH DIFFE RENTI AL/PL ATELE T RDW 13.0 % 11.6-1 5.4 Not Available [facility] ([facility]) [address] [facility], [place], [address], 09/16/2022 07:11:53 09/16/19 23 09/15/2022 CBC WITH DIFFE RENTI AL/PL ATELE T platelets 275 x10e3 /uL 150-45 0 Not Available [facility] ([facility]) [address] [facility], [place], [address], 09/16/2022 07:11:53 09/16/19 23 09/15/2022 CBC WITH DIFFE RENTI AL/PL ATELE T neutrophils 65 % not estab. Not Available [facility] ([facility]) [address] [facility], [place], [address], 09/16/2022 07:11:53 09/16/19 23 09/15/2022 CBC WITH DIFFE RENTI AL/PL ATELE T lymphs 25 % not estab. Not Available [facility] ([facility]) [address] [facility], [place], [address], 09/16/2022 07:11:53 09/16/19 23 09/15/2022 CBC WITH DIFFE RENTI AL/PL ATELE T monocytes 6 % not estab. Not Available [facility] ([facility]) [address] [facility], [place], [address], 09/16/2022 07:11:53 09/16/19 23 09/15/2022 CBC WITH DIFFE RENTI AL/PL ATELE T eos 3 % not estab. Not Available [facility] ([facility]) [address] [facility], [place], [address], 09/16/2022 07:11:53 09/16/19 23 09/15/2022 CBC WITH DIFFE RENTI AL/PL ATELE T basos 1 % not estab. Not Available [facility] ([facility]) [address] [facility], [place], [address], 09/16/2022 07:11:53 09/16/19 23 09/15/2022 CBC WITH DIFFE RENTI AL/PL ATELE T immature cells DEMOLITION EXPERT Not Available [facility] ([facility]) [address] [place], [address], 09/16/2022 07:11:53 09/16/19 23 09/15/2022 CBC WITH DIFFE RENTI AL/PL ATELE T neutrophils (absolute) 4.0 x10e3 /uL 1.4-7. 0 Not Available [facility] ([facility]) [address] [place], [address], 09/16/2022 07:11:53 09/16/19 23 09/15/2022 CBC WITH DIFFE RENTI AL/PL ATELE T lymphs (absolute) 1.5 x10e3 /uL 0.7-3. 1 Not Available [facility] ([facility]) [address] [place], [address], 09/16/2022 07:11:53 09/16/19 23 09/15/2022 CBC WITH DIFFE RENTI AL/PL ATELE T monocytes(ab solute) 0.4 x10e3 /uL 0.1-0. 9 Not Available [facility] ([facility]) [address] [facility], [place], [address], 09/16/2022 07:11:53 09/16/19 23 09/15/2022 CBC WITH DIFFE RENTI AL/PL ATELE T eos (absolute) 0.2 x10e3 /uL 0.0-0. 4 Not Available [facility] ([facility]) [address] [facility], [place], [address], 09/16/2022 07:11:53 09/16/19 23 09/15/2022 CBC WITH DIFFE RENTI AL/PL ATELE T baso (absolute) 0.1 x10e3 /uL 0.0-0. 2 Not Available [facility] ([facility]) [address] [facility], [place], [address], 09/16/2022 07:11:53 09/16/19 23 09/15/2022 CBC WITH DIFFE RENTI AL/PL ATELE T immature granulocytes 0 % not estab. Not Available [facility] ([facility]) [address] [facility], [place], [address], 09/16/2022 07:11:53 09/16/19 23 09/15/2022 CBC WITH DIFFE RENTI AL/PL ATELE T immature grans (abs) 0.0 x10e3 /uL 0.0-0. 1 Not Available [facility] ([facility]) [address] [place], [address], 09/16/2022 07:11:53 09/16/19 23 09/15/2022 CBC WITH DIFFE RENTI AL/PL ATELE T NRBC DEMOLITION EXPERT Not Available [facility] ([facility]) [address] [facility], [place], [address], 09/16/2022 07:11:53 09/16/19 23 09/15/2022 CBC WITH DIFFE RENTI AL/PL ATELE T hematology comments: DEMOLITION EXPERT Not Available [facility] ([facility]) [address] [facility], [place], [address], 09/16/2022 07:11:53 09/16/19 23 09/16/2022 COMP. METAB OLIC PANEL (14) glucose 92 mg/dL 70-99 Not Available [facility] ([facility]) [address] [facility] [place], [address], 09/16/2022 07:11:54 09/16/19 23 09/16/2022 COMP. METAB OLIC PANEL (14) BUN 19 mg/dL 8-27 Not Available [facility] ([facility]) [address] [facility] [place], [address], 09/16/2022 07:11:54 09/16/19 23 09/16/2022 COMP. METAB OLIC PANEL (14) creatinine 1.03 mg/dL 0.76-1 .27 Not Available [facility] ([facility]) [address] [facility], [place], [address], 09/16/2022 07:11:54 09/16/19 23 09/16/2022 COMP. METAB OLIC PANEL (14) eGFR 81 mL/mi n/1.7 3 >59 Not Available [facility] ([facility]) [address] [facility] [place], [address], 09/16/2022 07:11:54 09/16/19 23 09/16/2022 COMP. METAB OLIC PANEL (14) BUN/creatini ne ratio 18 10-24 Not Available [facility] ([facility]) [address] [facility] [place], [address], 09/16/2022 07:11:54 09/16/19 23 09/16/2022 COMP. METAB OLIC PANEL (14) sodium 144 mmol/ L 134-14 4 Not Available [facility] ([facility]) [address] [place], [address], 09/16/2022 07:11:54 09/16/19 23 09/16/2022 COMP. METAB OLIC PANEL (14) potassium 4.8 mmol/ L 3.5-5. 2 Not Available [facility] ([facility]) [address] [facility] [place], [address], 09/16/2022 07:11:54 09/16/19 23 09/16/2022 COMP. METAB OLIC PANEL (14) chloride 108 mmol/ L 96-106 above high normal Not Available [facility] ([facility]) [address] [place], [address], 09/16/2022 07:11:54 09/16/19 23 09/16/2022 COMP. METAB OLIC PANEL (14) carbon dioxide, total 24 mmol/ L 20-29 Not Available [facility] ([facility]) [address] [facility] [place], [address], 09/16/2022 07:11:54 09/16/19 23 09/16/2022 COMP. METAB OLIC PANEL (14) calcium 9.6 mg/dL 8.6-10 .2 Not Available [facility] ([facility]) [address] [facility] [place], [address], 09/16/2022 07:11:54 09/16/19 23 09/16/2022 COMP. METAB OLIC PANEL (14) protein, total 7.2 g/dL 6.0-8. 5 Not Available [facility] ([facility]) [address] [facility] [place], [address], 09/16/2022 07:11:54 09/16/19 23 09/16/2022 COMP. METAB OLIC PANEL (14) albumin 4.7 g/dL 3.8-4. 8 Not Available [facility] ([facility]) [address] [facility] [place], [address], 09/16/2022 07:11:54 09/16/19 23 09/16/2022 COMP. METAB OLIC PANEL (14) globulin, total 2.5 g/dL 1.5-4. 5 Not Available [facility] ([facility]) [address] [place], [address], 09/16/2022 07:11:54 09/16/19 23 09/16/2022 COMP. METAB OLIC PANEL (14) A/G ratio 1.9 1.2-2. 2 Not Available [facility] ([facility]) [address] [place], [address], 09/16/2022 07:11:54 09/16/19 23 09/16/2022 COMP. METAB OLIC PANEL (14) bilirubin, total 0.7 mg/dL 0.0-1. 2 Not Available [facility] ([facility]) [address] [place], [address], 09/16/2022 07:11:54 09/16/19 23 09/16/2022 COMP. METAB OLIC PANEL (14) alkaline phosphatase 59 IU/L 44-121 Not Available [facility] ([facility]) [address] [place], [address], 09/16/2022 07:11:54 09/16/19 23 09/16/2022 COMP. METAB OLIC PANEL (14) AST (SGOT) 23 IU/L 0-40 Not Available [facility] ([facility]) [address] [place], [address], 09/16/2022 07:11:54 09/16/19 23 09/16/2022 COMP. METAB OLIC PANEL (14) ALT (SGPT) 21 IU/L 0-44 Not Available [facility] ([facility]) [address] [place], [address], 09/16/2022 07:11:54 09/16/19 23 09/16/2022 LIPID PANEL cholesterol, total 201 mg/dL 100-19 9 above high normal Not Available [facility] ([facility]) [address] [place], [address], 09/16/2022 07:11:54 09/16/19 23 09/16/2022 LIPID PANEL triglyceride s 83 mg/dL 0-149 Not Available [facility] ([facility]) [address] [place], [address], 09/16/2022 07:11:54 09/16/19 23 09/16/2022 LIPID PANEL HDL cholesterol 46 mg/dL >39 Not Available [facility] ([facility]) [address] [place], [address], 09/16/2022 07:11:54 09/16/19 23 09/16/2022 LIPID PANEL VLDL cholesterol rox 15 mg/dL 5-40 Not Available [facility] ([facility]) [address] [place], [address], 09/16/2022 07:11:54 09/16/19 23 09/16/2022 LIPID PANEL LDL chol calc ([facility]) 140 mg/dL 0-99 above high normal Not Available [facility] ([facility]) [address] [place], [address], 09/16/2022 07:11:54 09/16/19 23 09/16/2022 LIPID PANEL comment: DEMOLITION EXPERT Not Available [facility] ([facility]) [address] [place], [address], 09/16/2022 07:11:54 09/16/19 23 09/16/2022 PROST ATE-S PECIF IC AG prostate specific Ag 3.8 NG/mL 0.0-4. 0 Ed ECLIA metho dolog y. Accor ding to the Ameri can [employer] g[employer] iatio n, Serum PSA shoul d decre ase and remai n at undet ectab le level s after radic al prost atect julianna. The AUA defin es bioch emica l recur rence as an initi al PSA value 0.2 ng/mL or great er follo wed by a subse quent confi rmato ry PSA value 0.2 ng/mL or great er. Value s obtai makeda with diffe rent assay metho ds or kits canno t be used inter winn eably . Resul ts canno t be inter prete d as absol [place] evide nce of the prese nce or absen ce of lizzy matthews disea se. Not Available [facility] ([facility]) [address] [facility], [place], [address], 09/16/2022 07:11:55 09/16/1909/15/2022 AMBIG ABBRE V CMP14 DEFAU LT ambig abbrev CMP14 default Commen t A hand- writt en panel /prof ile was recei reggie from your offic e. In accor dance with the [facility] Ambig uous Test Code [facility] y dated November 2002, we have compl eted your order by using the close st curre ntly or forme rly recog nized AMA panel . We have assig makeda Compr ehens alena Metab olic Panel (14), Test Code #32[address]. If this is not the testi ng you wishe d to recei ve on this speci men, pleas e conta ct the [facility] Clien t Inqui ry/Te chnic al Servi frank Depar tment to corina fy the test order . We appre ciate your busin ess. Not Available [facility] ([facility]) [address] [facility], [place], [address], 09/16/2022 07:11:55 09/16/1909/15/2022 AMBIG ABBRE V LP DEFAU LT ambig abbrev LP default Commen t A hand- writt en panel /prof ile was recei reggie from your offic e. In accor dance with the [facility] Ambig uous Test Code Polic y dated November 2002, we have compl eted your order by using the close st curre ntly or forme rly recog nized AMA panel . We have bj ashford Lipid Panel , Test Code #30[address]. If this is not the testi ng you wishe d to recei ve on this speci raquel daniels ct the [facility] Clien t Inqui ry/Te chnic al Servi frank Depar tment to corina fy the test order . We appre ciate your busin ess. Not Available [facility] ([facility]) [address] [facility], [place], [address], 09/16/2022 07:11:55 10/07/19 24 10/08/2023 LIPID PANEL , STAND MILAGROS cholesterol, total 191 mg/dL <200 normal Not Available [facility] [place] [address] [place], [address], 10/08/2023 08:41:05 10/07/19 24 10/08/2023 LIPID PANEL , STAND MILAGROS HDL cholesterol 47 mg/dL > or = 40 normal Not Available [facility] [place] [address] [place], [address], 10/08/2023 08:41:05 10/07/19 24 10/08/2023 LIPID PANEL , STAND MILAGROS triglyceride s 84 mg/dL <150 normal Not Available [place] [address] [place], [address], 10/08/2023 08:41:05 10/07/19 24 10/08/2023 LIPID PANEL , STAND MILAGROS LDL-choleste rol 126 mg/dL _(rox c) high Refer ence range : <100 Tho able range <100 mg/dL for prima ry preve ntion ; <70 mg/dL for patie nts with CHD or diabe tic patie nts with > or = 2 CHD risk facto rs. LDL-C is now calcu lated using the Arina n-Hop kins calcu bobo n, which is a valid ated novel metho d provi maggie margot r accur acy than the Fried sharee equat ion in the estim ation of LDL-C . Arina mayo SS et al. DONATO. 2013; 310(1 9): 2061- 2068 (http ://ed ucati on.Froilan medelBatesHook. com/f aq/FA Q164) Not Available [address], [address], 10/08/2023 08:41:05 10/07/19 24 10/08/2023 LIPID PANEL , STAND MILAGROS chol/HDLC ratio 4.1 (calc ) <5.0 normal Not Available [address], [address], 10/08/2023 08:41:05 10/07/19 24 10/08/2023 LIPID PANEL , STAND MILAGROS non HDL cholesterol 144 mg/dL _(rox c) <130 high For patie nts with diabe cornel plus 1 major ASCVD risk facto r, treat ing to a non-H DL-C goal of <100 mg/dL (LDL- C of <70 mg/dL ) is consi dered a thera ronnell judgeo n. Not Available [address], [address], 10/08/2023 08:41:05 10/07/19 24 10/08/2023 COMPR EHENS ALENA METAB OLIC PANEL glucose 95 mg/dL 65-99 normal Fasti ng refer ence inter javi Not Available [address], [address], 10/08/2023 08:41:06 10/07/19 24 10/08/2023 COMPR EHENS ALENA METAB OLIC PANEL urea nitrogen (BUN) 21 mg/dL 7-25 normal Not Available [address], [address], 10/08/2023 08:41:06 10/07/19 24 10/08/2023 COMPR EHENS ALENA METAB OLIC PANEL creatinine 0.98 mg/dL 0.70-1 .35 normal Not Available [address] [place], [address], 10/08/2023 08:41:06 10/07/19 24 10/08/2023 COMPR EHENS ALENA METAB OLIC PANEL eGFR 85 mL/mi n/1.7 3m2 > or = 60 normal Not Available [address], [address], 10/08/2023 08:41:06 10/07/19 24 10/08/2023 COMPR EHENS ALENA METAB OLIC PANEL BUN/creatini ne ratio SEE NOTE: (calc ) 6-22 Not Repor elissa: BUN and Creat inine are withi n refer ence range . Not Available [address], [address], 10/08/2023 08:41:06 10/07/19 24 10/08/2023 COMPR EHENS ALENA METAB OLIC PANEL sodium 140 mmol/ L 135-14 6 normal Not Available [address], [address], 10/08/2023 08:41:06 10/07/19 24 10/08/2023 COMPR EHENS ALENA METAB OLIC PANEL potassium 4.0 mmol/ L 3.5-5. 3 normal Not Available [address], [address], 10/08/2023 08:41:06 10/07/19 24 10/08/2023 COMPR EHENS ALENA METAB OLIC PANEL chloride 106 mmol/ L 98-110 normal Not Available [address], [address], 10/08/2023 08:41:06 10/07/19 24 10/08/2023 COMPR EHENS ALENA METAB OLIC PANEL carbon dioxide 26 mmol/ L 20-32 normal Not Available [address], [address], 10/08/2023 08:41:06 10/07/19 24 10/08/2023 COMPR EHENS ALENA METAB OLIC PANEL calcium 9.2 mg/dL 8.6-10 .3 normal Not Available [address], [address], 10/08/2023 08:41:06 10/07/19 24 10/08/2023 COMPR EHENS ALENA METAB OLIC PANEL protein, total 6.6 g/dL 6.1-8. 1 normal Not Available [address], [address], 10/08/2023 08:41:06 10/07/19 24 10/08/2023 COMPR EHENS ALENA METAB OLIC PANEL albumin 4.3 g/dL 3.6-5. 1 normal Not Available [address], [address], 10/08/2023 08:41:06 10/07/19 24 10/08/2023 COMPR EHENS ALENA METAB OLIC PANEL globulin 2.3 g/dL_ (calc ) 1.9-3. 7 normal Not Available [address], [address], 10/08/2023 08:41:06 10/07/19 24 10/08/2023 COMPR EHENS ALENA METAB OLIC PANEL albumin/glob ulin ratio 1.9 (calc ) 1.0-2. 5 normal Not Available [address], [address], 10/08/2023 08:41:06 10/07/19 24 10/08/2023 COMPR EHENS ALENA METAB OLIC PANEL bilirubin, total 0.8 mg/dL 0.2-1. 2 normal Not Available [address], [address], 10/08/2023 08:41:06 10/07/19 24 10/08/2023 COMPR EHENS ALENA METAB OLIC PANEL alkaline phosphatase 46 U/L 35-144 normal Not Available [address], [address], 10/08/2023 08:41:06 10/07/19 24 10/08/2023 COMPR EHENS ALENA METAB OLIC PANEL AST 19 U/L 10-35 normal Not Available [address], [address], 10/08/2023 08:41:06 10/07/19 24 10/08/2023 COMPR EHENS ALENA METAB OLIC PANEL ALT 19 U/L 9-46 normal Not Available [address], [address], 10/08/2023 08:41:06 10/07/19 24 10/08/2023 CBC (INCL UDES DIFF/ PLT) white blood cell count 4.7 thous and/u L 3.8-10 .8 normal Not Available [address], [address], 10/08/2023 08:41:07 10/07/19 24 10/08/2023 CBC (INCL UDES DIFF/ PLT) red blood cell count 4.76 lauren on/uL 4.20-5 .80 normal Not Available [address], [address], 10/08/2023 08:41:07 10/07/19 24 10/08/2023 CBC (INCL UDES DIFF/ PLT) hemoglobin 14.3 g/dL 13.2-1 7.1 normal Not Available [address], [address], 10/08/2023 08:41:07 10/07/19 24 10/08/2023 CBC (INCL UDES DIFF/ PLT) hematocrit 44.4 % 38.5-5 0.0 normal Not Available [address], [address], 10/08/2023 08:41:07 10/07/19 24 10/08/2023 CBC (INCL UDES DIFF/ PLT) MCV 93.3 fL 80.0-1 00.0 normal Not Available [address], [address], 10/08/2023 08:41:07 10/07/19 24 10/08/2023 CBC (INCL UDES DIFF/ PLT) MCH 30.0 pg 27.0-3 3.0 normal Not Available [address], [address], 10/08/2023 08:41:07 10/07/19 24 10/08/2023 CBC (INCL UDES DIFF/ PLT) MCHC 32.2 g/dL 32.0-3 6.0 normal Not Available [address], [address], 10/08/2023 08:41:07 10/07/19 24 10/08/2023 CBC (INCL UDES DIFF/ PLT) RDW 13.0 % 11.0-1 5.0 normal Not Available [address], [address], 10/08/2023 08:41:07 10/07/19 24 10/08/2023 CBC (INCL UDES DIFF/ PLT) platelet count 234 thous and/u L 140-40 0 normal Not Available [address], [address], 10/08/2023 08:41:07 10/07/19 24 10/08/2023 CBC (INCL UDES DIFF/ PLT) MPV 10.2 fL 7.5-12 .5 normal Not Available [address], [address], 10/08/2023 08:41:07 10/07/19 24 10/08/2023 CBC (INCL UDES DIFF/ PLT) absolute neutrophils 2679 cells /uL 1500-7 800 normal Not Available [address], [address], 10/08/2023 08:41:07 10/07/19 24 10/08/2023 CBC (INCL UDES DIFF/ PLT) absolute lymphocytes 1297 cells /uL 850-39 00 normal Not Available [address], [address], 10/08/2023 08:41:07 10/07/19 24 10/08/2023 CBC (INCL UDES DIFF/ PLT) absolute monocytes 512 cells /uL 200-95 0 normal Not Available [address], [address], 10/08/2023 08:41:07 10/07/19 24 10/08/2023 CBC (INCL UDES DIFF/ PLT) absolute eosinophils 150 cells /uL 15-500 normal Not Available [address], [address], 10/08/2023 08:41:07 10/07/19 24 10/08/2023 CBC (INCL UDES DIFF/ PLT) absolute basophils 61 cells /uL 0-200 normal Not Available [address], [address], 10/08/2023 08:41:07 10/07/19 24 10/08/2023 CBC (INCL UDES DIFF/ PLT) neutrophils 57 % normal Not Available [address], [address], 10/08/2023 08:41:07 10/07/19 24 10/08/2023 CBC (INCL UDES DIFF/ PLT) lymphocytes 27.6 % normal Not Available [facility] [address], [address], 10/08/2023 08:41:07 10/07/19 24 10/08/2023 CBC (INCL UDES DIFF/ PLT) monocytes 10.9 % normal Not Available [address], [address], 10/08/2023 08:41:07 10/07/19 24 10/08/2023 CBC (INCL UDES DIFF/ PLT) eosinophils 3.2 % normal Not Available [address], [address], 10/08/2023 08:41:07 10/07/19 24 10/08/2023 CBC (INCL UDES DIFF/ PLT) basophils 1.3 % normal Not Available [facility] [address], [address], 10/08/2023 08:41:07 10/07/19 24 10/08/2023 PSA, TOTAL PSA, total 2.58 NG/mL < or = 4.00 normal The total PSA value from this assay syste m is stand ardiz ed again st the WHO stand milagros. The test resul t will be appro ximat antonio 20% lower when sumit red to the equim olar- stand ardiz ed total PSA (Foley man Coult er). Sumit rison of seria l PSA resul ts shoul d be inter prete d with this fact in mind. This test was perfo rmed using the [employer] chemi lumin escen t metho d. Value s obtai makeda from diffe rent assay metho ds canno t be used inter winn eably . PSA level s, regar dless of value , shoul d not be inter prete d as absol [place] evide nce of the prese nce or absen ce of disea se. Not Available [address], [address], 10/08/2023 08:41:07 11/03/19 25 11/04/2024 PSA, TOTAL WITH REFLE X TO PSA, FREE PSA, total 3.0 NG/mL < or = 4.0 The Total PSA value from this assay syste m is stand ardiz ed again st the equim olar PSA stand milagros. The test resul t will be appro ximat antonio 20% highe r when sumit red to the WHO-s tanda rdize d Total PSA (Siem ens assay ). Sumit rison of seria l PSA resul ts shoul d be inter prete d with this fact in mind. PSA was perfo rmed using the Beckm an Coult er Immun oassa y metho d. Value s obtai makeda from diffe rent assay metho ds canno t be used inter winn eably . PSA level s, regar dless of value , shoul d not be inter prete d as absol [place] evide nce of the prese nce or absen ce of disea se. Not Available [facility] [address] [place], [address], 11/04/2024 16:23:22 08/15/19 22 08/14/2021 US, neck, soft tissu e No observ ation record ed. [id number] [facility] [address] [place], [address], 09/02/2022 23:53:06 08/15/19 22 08/14/2021 US, scrot um No observ ation record ed. [id number] [facility] [address] [place], [address], 09/02/2022 23:53:06 09/05/19 22 09/04/2021 CT, neck, soft tissu e, w/ contr ast No observ ation record ed. [id number] [facility] [address] [place], [address], 09/02/2022 23:53:06 09/09/19 23 09/10/2022 elect rocar diogr am No observ ation record ed. Dipc[facility] [address], [address], 09/10/2022 15:07:49 09/11/19 23 09/10/2022 elect leah olmosgr am No observ ation record ed. [email or web address] [facility] a [address], [address], 09/10/2022 15:13:09 Result Notes None recorded. Problems Name Problem SNOMED Code Status Onset Date Resolution Date Notes Provider Name and Address Organization Details Recorded Time Basal cell carcinoma of skin 092887130 Active 2020 Not Available [facility] 3 17:59:30 Squamous cell carcinoma 479755089 Active 2020 Not Available [facility] 3 17:59:30 Diverticular disease 259969110 Active 2021 Not Available [facility] 3 17:59:30 Sleep apnea 58843293 Active 2022 KEE Valadez [address] [place] [address], [place], [address] , [facility] 3 15:05:35 Motion sickness 96634809 Active 2023 KEE Valadez [address] [place] [address], [place], [address] , [facility] 4 10:27:06 Hyperlipidemi a 56590409 Active 2024 KEE Valadez [address] [place] [address], [place], [address] , [facility] 5 11:10:12 Problem Notes None recorded. Procedures Surgical History Date Name Laterality Status Provider Name and Address Organization Details Recorded Time 09/24/19 25 Medicare Wellness CPT Code, Subsequent completed Nataly Alberts [place] [facility] 09/23/2024 08:56:14 09/23/19 24 Medicare Wellness CPT Code, Subsequent completed Nataly Alberts [place] [facility] 09/23/2023 08:32:17 09/11/19 23 Medicare Wellness CPT Code, Welcome completed Daan Box RN [address] [place] [address], [address], [facility] 09/08/2022 10:21:09 09/15/19 21 colonoscopy completed Not Available [facility] 05/25/19 23 17:58:33 open reduction of dislocation of shoulder completed Not Available [facility] 05/25/2022 17:58:33 manipulation of displaced nasal septum completed Not Available [facility] 05/25/2022 17:58:33 mohs surgery completed Not Available [facility] 05/25/2022 17:58:33 Imaging Results None recorded. Procedure Notes None recorded. Medical Equipment None Reported. Allergies No known drug allergies Medications Name Sig Start Date Stop Date Status Note LastModified by Organization Details LastModified Time celecoxib 200 mg capsule TAKE 1 CAPSULE (200 MG TOTAL) BY MOUTH DAILY FOR 21 DAYS 09/23 completed Not Available Not Available Not Available amoxicillin 500 mg capsule TAKE ONE (1) CAPSULE EVERY EIGHT (8) HOURS FOR FIVE (5) DAYS 09/23 completed Not Available Not Available Not Available scopolamine 1 mg over 3 days transdermal patch APPLY 1ST PATCH >4HR BEFORE EVENT, APPLY 1 PATCH EVERY 3 DAYS NEEDED active Not Available Not Available No t Available amoxicillin 875 mg-potassiu m clavulanate 125 mg tablet Take 1 tablet every 12 hours by oral route for 10 days. 09/10 completed Not Available Not Available Not Available chlorhexidi ne gluconate 0.12 % mouthwash SWISH AND SPIT WITH 1/2 OUNCE AFTER BREAKFAST AND BEFORE BEDTIME 09/23 completed Not Available Not Available Not Available Allergy Relief Eye Drops active Not Available Not Available Not Available Flonase Allergy Relief 50 mcg/actuati on nasal spray,suspe nsion [place] 2 sprays every day by intranasa l route. 2020 active Not Available Not Available Not Avai lable Vitals Date Recorded Oxygen saturation Oxygen saturation in Arterial blood by Pulse oximetry Heart rate Respiratory rate Body temperature Body weight Systolic And Diastolic Provider Name and Address Organization Details Last Updated DateTime 2 97 % 97 % 62 /min 16 /min 98.1 [degF] 578802. 21 g 130/80 mm[Hg] Not Available [facility] 3 17:59:19 Date Recorded Body height Body mass index (BMI) Body weight Body temperature Heart rate Oxygen saturation Oxygen saturation in Arterial blood by Pulse oximetry Systolic And Diastolic Provider Name and Address Organization Details Last Updated DateTime 3 187.96 cm 27.5 kg/m2 04812.4 9 g 98.2 [degF] 68 /min 95 % 95 % 132/88 mm[Hg] Dana Box, RN [address] [place], [address], [facility] 3 14:16:01 Date Recorded Body mass index (BMI) Body height Provider Name and Address Organization Details Last Updated DateTime 09/23/2023 27.7 kg/m2 187.96 cm KEE Valadez [address], [address], [facility] 09/23/2023 15:08:59 Date Recorded Body weight Body temperature Heart rate Oxygen saturation Oxygen saturation in Arterial blood by Pulse oximetry Systolic And Diastolic Provider Name and Address Organization Details Last Updated DateTime 4 83270.6 5 g 97.3 [degF] 63 /min 97 % 97 % 140/84 mm[Hg] Natalysneha Alberts [facility] 4 15:02:24 Date Recorded Body mass index (BMI) Body height Provider Name and Address Organization Details Last Updated DateTime 09/23/2024 27.6 kg/m2 187.96 cm KEE Valadez [address], [address], [facility] 09/23/2024 11:40:10 Date Recorded Body weight Body temperature Heart rate Oxygen saturation Oxygen saturation in Arterial blood by Pulse oximetry Systolic And Diastolic Provider Name and Address Organization Details Last Updated DateTime 5 00871.3 6 g 97 [degF] 64 /min 96 % 96 % 136/82 mm[Hg] Nataly Alberts [facility] 5 11:20:48 Social History Question Answer Notes LastModified by Organizat ion Details LastModified Time Tobacco Smoking Status Never Smoker Not Available [facility] 05/25/2022 17:58:29 Do You Have An Advance Directive? Yes [email or web address] Information not available 09/10/2022 Are You Blind Or Do You Have Difficulty Seeing? Yes Wears Reading Glasses [email or web address] Information not available 09/10/2022 What Is Your Level Of Caffeine Consumption? Occasional Coffee In The Morning MIGRATION.42478 [id number] Information not available 05/25/2022 In The 14 Days Before Symptom Onset, Have You Had Close Contact With A Laboratory-confir med COVID-19 While That Case Was Ill? No MIGRATION.98975 91379 Information not available 05/25/2022 In The 14 Days Before Symptom Onset, Have You Had Close Contact With A Person Who Is Under Investigation For COVID-19 While That Person Was Ill? No MIGRATION.22351 78488 Information not available 05/25/2022 Are You Deaf Or Do You Have Serious Difficulty Hearing? No [email or web address] Information not available 09/10/2022 What Type Of Diet Are You Following? REGULAR MIGRATION.83772 00192 Information not available 05/25/2022 Are You In An Abusive/frighteni ng Relationship? No MIGRATION.19622 23709 Information not available 05/25/2022 Do You Feel Safe At Home Yes MIGRATION.35265 65308 Information not available 05/25/2022 What Was The Date Of Your Most Recent Tobacco Screening? 09/23/2024 [email or web address] Information not available 09/23/2024 Have You Ever Been Counseled For Unhealthy Alcohol Use? No Information not available 09/23/2024 What Is Your Relationship Status? MIGRATION.51314 24325 Information not available 05/25/2022 Have You Recently Traveled Abroad? No MIGRATION.63573 19657 Information not available 05/25/2022 Do You Have Difficulty Walking Or Climbing Stairs? No [email or web address] Information not available 09/10/2022 Are You Currently In School? No MIGRATION.95619 01251 Information not available 05/25/2022 Do You Have Any Dietary Restrictions? No MIGRATION.84721 50069 Information not available 05/25/2022 How Many Days In The Past Year Have You Consumed 5 Or More Drinks? 0 Information no t available 09/23/2024 Sex: Male Functional Status Question Answer Note LastModified by Organizat ion Details LastModified Time Do you or have you ever used any other forms of tobacco or nicotine? No MIGRATION.000864 7467 Information not available 05/25/2022 What is your level of alcohol consumption? Occasional MIGRATION.464964 4030 Information not available 05/25/2022 Are you currently employed? No retired MIGRATION.884694 5182 Information not available 05/25/2022 Do you have transportation difficulties? No Information not available 09/10/2022 Are you able to walk? YESWOREST [email or web address] Information not available 09/10/2022 Do you have difficulty doing errands alone? No [email or web address] Information not available 09/10/2022 Are you able to care for yourself independently? Yes [email or web address] Information not available 09/10/2022 Do you have difficulty dressing, bathing, grooming, or toileting? No [email or web address] Information not available 09/10/2022 What is your exercise level? Occasional MIGRATION.392474 7885 Information not available 05/25/2022 Mental Status Question Answer Note LastModified by Organizat ion Details LastModified Time Do you feel stressed (tense, restless, nervous, or anxious, or unable to sleep at night)? LV9635-7 [email or web address] Information not available 09/23/2023 Do you have difficulty concentrating, remembering or making decisions? No [email or web address] Information no t available 09/10/2022 Family History Relationship Description Onset Age of this Age Resolved Age Notes LastModified by Organization Details LastModified Time Mother Malignant tumor of breast MIGRATION.071 [id number] Not available 05/25/2022 17:58:34 Mother Malignant tumor of colon MIGRATION.009 [id number] Not available 05/25/2022 17:58:34 Father Parkinson's disease MIGRATION.156 [id number] Not available 05/25/2022 17:58:34 Medical History No medical history recorded. Immunizations Vaccine Type Date Status Note Provider Nam e and Address Organization Details Recorded Time Pneumococcal conjugate PCV20, polysaccharide XDM510 conjugate, adjuvant, PF 3 completed KEE Valadez [address] [place] [address] [address], [place], [address], [facility] 09/11/2022 17:54:22 Tdap 9 completed Dana Box, DENIZ [address] [place] [address], [place], [address], [facility] 09/08/2022 10:25:50 influenza, unspecified formulation 5 completed Dana Box, DENIZ [address] [place] [address], [place], [address], [facility] 09/08/2022 10:23:41 Influenza, split virus, trivalent, PF 7 completed Dana Box, DENIZ [address] [facility], [place], [address], [facility] 09/08/2022 10:23:57 influenza, unspecified formulation 8 completed Dana Box RN [address] [place] [address], [place], [address], [facility] 09/08/2022 10:24:20 Influenza, MDCK, quadrivalent, preservative 9 completed Dana Box RN [address] [place] [address], [place], [address], [facility] 09/08/2022 10:24:43 Influenza, split virus, quadrivalent, PF 0 completed Dana Box RN [address] [place] [address], [place], [address], [facility] 09/08/2022 10:25:00 Influenza, split virus, quadrivalent, PF 1 karina Box RN [address] [place] [address], [place], [address], [facility] 09/08/2022 10:25:15 Influenza, high-dose, quadrivalent, PF 2 completed Dana Box RN [address] [place] [address], [place], [address], [facility] 09/08/2022 10:25:32 zoster recombinant 2 karina Box RN [address] [place] [address], [place], [address], [facility] 09/08/2022 10:26:32 zoster recombinant 2 completed Dana Box RN [address] [place] [address], [address], [facility] 09/08/2022 10:26:50 COVID-19, mRNA, LNP-S, PF, 30 mcg/0.3 mL dose 1 completed Dana Box RN [address] [place] [address], [address], [facility] 09/08/2022 10:27:09 COVID-19, mRNA, LNP-S, PF, 30 mcg/0.3 mL dose 1 completed Dana Box RN [address] [place] [address], [address], [facility] 09/08/2022 10:27:18 COVID-19, mRNA, LNP-S, PF, 30 mcg/0.3 mL dose 1 completed Dana Bxo RN [address] [place] [address], [address], [facility] 09/08/2022 10:27:22 influenza, unspecified formulation 3 completed Nataly Alberts [facility] 09/23/2023 15:00:12 Past Encounters Encounter ID Performer Location Encounter Start Date Encounter Closed Date Diagnosis/Indication Diagnosis SNOMED-CT Code Diagnosis ICD10 Code Diagnosis Note [id number] KEE ValadezC_RB A [place] [address] [place] [address] 08/08/2021 00:00:00 08/08/2021 18:46:38 [id number] MD JESSICA MARXC_RB A [address] [place] [address] 09/10/2022 13:56:21 09/10/2022 15:09:02 Adult health examination 031135019 Z00.00 Patient presented to office today for their Medicare Annual Wellness Visit.Educ ation was provided on healthy nutrition, including a diet rich in fruits and vegetables , minimizing simple carbohydra cornel, salt, and saturated fats. Encouraged regular cardiovasc ular exercise such as walking at least 30 minutes daily, 5 times per week.Empha sized preventive health measures and educated pt on fall prevention and community- based lifestyle interventi ons to help reduce health risks and promote healthy living.Thalia tovar's BMI is 27.5. Screening for disorder 663468594 Z13.89 Screening for cardiovascular system disease 255643229 Z13.6 Body mass index 25-29 - overweight 484959715 Z68.27 Screening for malignant neoplasm of prostate 821040191 Z12.5 patient is over 50 years of age Administra tion of pneumococcal vaccine 61738798 Z23 [id number] LAWRENCE KLINE MD DIPC_RB [address] [address] 09/23/2023 14:46:27 09/23/2023 15:15:29 Adult health examination 855416292 Z00.00 Patient presented to office today for their Medicare Annual Wellness Visit.Educ ation was provided on healthy nutrition, including a diet rich in fruits and vegetables , minimizing simple carbohydra cornel, salt, and saturated fats. Encouraged regular cardiovasc ular exercise such as walking at least 30 minutes daily, 5 times per week.Empha sized preventive health measures and educated pt on fall prevention and community- based lifestyle interventi ons to help reduce health risks and promote healthy living.Thalia tovar's BMI is 27.5. Risk assessment done 712 524963 Z76.89 Screening for malignant neoplasm of prostate 630319773 Z12.5 patient is over 50 years of age [id number] STEFANO TRUJILLO MD DIPC_RB [address] [address] 09/23/2024 11:07:06 09/23/2024 11:59:42 Adult health examination 957584874 Z00.00 Patient presented to office today for their Medicare Annual Wellness Visit.Educ ation was provided on healthy nutrition, including a diet rich in fruits and vegetables , minimizing simple carbohydra cornel, salt, and saturated fats. Encouraged regular cardiovasc ular exercise such as walking at least 30 minutes daily, 5 times per week.Empha sized preventive health measures and educated pt on fall prevention and community- based lifestyle interventi ons to help reduce health risks and promote healthy living.Thalia tovar's BMI is 27.5. Risk assessment done 712 797207 Z76.89 Depression screening 171 399632 Z13.31 Screening for malignant neoplasm of prostate 347898424 Z12.5 patient is over 50 years of age Sleep apnea 38765484 G47 .30 States his machine is old, needs new one, will need utd sleep study. Health Concerns Section Related Observation LastModified by Organization Detai ls LastModified Time None Recorded Concern Status LastModified by Organization Details LastModified Time None Recorded Advance Directives Directive Y: Payers Insurance Date Sequence Insurance Name Policy Number Policy Cabezas Covered Member ID Cabezas Member ID Guarantor Name 09/23/2024 1 [place] [id number] Jose C Preciado [id number] Jose C Preciado 09/23/2024 2 [employer] (MEDICARE SUPPLEMENT) Jose C Preciado [id number] Jose C Preciado 09/23/2024 1 [place] Jose C Preciado [id number] Jose C Preciado 09/23/2024 2 [facility] (MEDICARE SUPPLEMENT) Jose C Preciado [id number] Jose C Preciado 09/23/2024 2 [facility] (MEDICARE SUPPLEMENT) Jose C Preciado [id number] Jose C Preciado Notes Date Note Type Note Provider Name and Address Organization Details Recorded Time 09/10/2022 text/html Patient presented to office today for their Medicare Annual Wellness Visit. KEE Valadez [address], [address], [facility] 09/11/2022 17:54:51 09/23/2023 text/html Patient is here for KEE Garner [address], [address], [facility] 09/23/2023 15:15:42 09/23/2024 text/html Patient is here for KEE Garner [address], [address], [facility] 09/23/2024 15:26:31
--- OUTSIDE RECORDS SUMMARY | 2024-12-09 06:56 | XMS_ITS | Encounter Summary ---
Author Organization [facility] Address [address] [place] [address] Care Team Providers Care Seamark Advanced Operator Maintainer Name Role Phone Unavailable Primary Care Provider Unavailabl e Encounter Details Date Type Department Care Team (Late st Contact Info) Description 12/18/2022 Lab Requisition [facility] - DermPath Lab [address] [facility], [place] [address] Jake Clemens MD [address] [address] Social History Tobacco Use Types Packs/Day [...] Priority Date/Time Associated Diagnosis Comments DERMATOPATHOLOGY Routine 12/17/2022 3:33 AM CDT documented in this encounter Results * DERMATOPATHOLOGY (12/17/2022 3:33 AM CDT) Case Report Dermatopathology Report Case: [id number] Authorizing Provider: Jake Clemens MD Collected: 12/17/2022 03:33 AM Ordering Location: [facility] D[facility] Lab Received: 12/19/2022 06:19 AM Pathologist: Jovanna Chand MD Specimen: Skin, right ant deltoid 3 4:15 PM CDT DERMATOPATHOLOGY LABORATORY Final Diagnosis Specimen A. SKIN, right ant deltoid: BASAL CELL CARCINOMA, SUPERFICIAL MULTIFOCAL (C44.612) 3 4:15 PM CDT DERMATOPATHOLOGY LABORATORY at 1615 CDT Clinical History [facility] Path#[id number] 3 4:15 PM CDT DERMATOPATHOLOGY LABORATORY Gross Description Specimen A: Received is one formalin filled container labeled with the patient's name and designated right ant deltoid. The specimen consists of a shave biopsy measuring 9x9x1 mm. Jar 0. 3 4:15 PM CDT DERMATOPATHOLOGY LABORATORY Microscopic Description Specimen A. SKIN, right ant deltoid: Attached to the undersurface of the epidermis, there are small aggregates of basaloid cells with a high nuclear to cytoplasmic ratio and peripheral palisading. 3 4:15 PM CDT DERMATOPATHOLOGY LABORATORY Disclaimer An external and internal positive and negative controls are appropriate for the histochemical, immunohistochemical and immunofluorescence stain(s) in this case (if any), except where stated explicitly. The performance characteristics of the stain(s) cited in this report were developed and its performance characteristic determined by the Dermatopathology Laboratory at [facility], directed by Dr. Pallavi Flood. These tests need not be, and therefore are not, approved by the [place] Food and Drug Administration. The tests are used for clinical purposes. Billing Codes Specimen Charges Stain Charges 41822 1 3 4:15 PM CDT DERMATOPATHOLOGY LABORATORY Embedded Images 3 4:15 PM CDT DERMATOPATHOLOGY LABORATORY Pathology/Cytolo gy TISSUE SPECIMEN FROM SKIN / Unknown 12/17/2022 3:33 AM CDT 12/19/2022 6:19 AM CDT Jake Clemens MD LAB - PATHOLOGY/CYTOLOGY ORDER [place] Final Result DERMATOPATHOLOGY LABORATORY [facility] - Department of Dermatology [address] [place] [address], [facility] [phone] documented in this encounter Visit Diagnoses Not on filedocumented in this encounter
--- OUTSIDE RECORDS SUMMARY | 2024-12-09 06:56 | XMS_ITS | Referral Summary ---
Author Organization [facility] HealthCare Care Team Providers Care Food Tester Name Role Phone Len Chou DO Primary [...] on file Sexual Orientation Not on file Last Filed Vital Signs Vital Sign Reading Time Taken Comments Blood Pressure 165/98 05/24/2024 11:07 AM MEDICAL INSTRUCTOR Pulse 91 05/24/2024 11:07 AM MEDICAL INSTRUCTOR Temperature - - Respiratory Rate - - Oxygen Saturation - - Inhaled Oxygen Concentration - - Weight 100.4 kg (221 lb 6.4 oz) 025 11:07 AM MEDICAL INSTRUCTOR Height 188 cm (6' 2) 05/24/2024 11:07 AM MEDICAL INSTRUCTOR Body Mass Index 28.43 05/24/2024 11:07 AM MEDICAL INSTRUCTOR Plan of Treatment Not on file Insurance MEDICARE [place] MEDICARE SUPPLEMENT Care Teams Food Tester Relationship Specialty Start Date End Date Len Chou DO [address] [facility] [address] [place] [address] PCP - General Orthopedic Surgery 05/23/24
--- NOTE | 2024-12-09 07:01 | ECG_ITS ---
Test Date: 2024-12-09 07:03:45 Measurements Intervals [place] Rate: 49 P: -6 IA: 158 QRS: -23 QRSD: 91 T: 54 QT: 433 QTc: 391 Interpretive Statements SINUS BRADYCARDIA BORDERLINE LEFT AXIS DEVIATION [QRS AXIS < -20] No previous ECG available for comparison Electronically Signed On 12-10-2024 18:30:11 CDT by Nish Villareal M.D.
[2024-12-09 07:16] LABS: Hematocrit 43.7 % (42.0-52.0); Hemoglobin 14.5 g/dL (14.0-18.0); Immature Granulocyte Percent A 0.3 % (0-0.5); Lymphocytes Absolute Auto 2.02 K/mm3 (0.9-3.2); Mean Corpuscular HGB Conc 33.2 g/dl (32-36); Mean Corpuscular Hemoglobin 29.4 pg (26-34); Mean Corpuscular Volume 88.6 fl (80-100); Nucleated Red Blood Cells Absolute Auto 0.000 K/mm3 (0.0-0.012); Nucleated Red Blood Cells Perc 0.0 % (0.0-0.2); Platelet Count Result 247 k/mm3 (150-375); Red Blood Count 4.93 M/mm3 (4.6-6.20); White Blood Count 6.1 K/mm3 (4.5-10.0)
--- OUTSIDE RECORDS SUMMARY | 2024-12-09 07:21 | XMS_ITS | Encounter Summary ---
Author Organization [facility] Address [address] [facility] [place] [address] Care Team Providers Care Printer'S Devil Name Role Phone Unavailable Primary Care Provider Unavailabl e Encounter Details Date Type Department Care Team (Late st Contact Info) Description 12/18/2022 Lab Requisition [facility] - DermPath Lab [address] [facility] [place] [phone] Jake Clemens MD [address] [place] [address] Social History Tobacco Use Types Packs/Day [...] AM CDT) Case Report Dermatopathology Report Case: [id number] Authorizing Provider: Jake Clemens MD Collected: 12/17/2022 03:33 AM Ordering Location: [facility] DermPath Lab Received: 12/19/2022 06:19 AM Pathologist: Jovanna Chand MD Specimen: Skin, right ant deltoid 3 4:15 PM CDT DERMATOPATHOLOGY LABORATORY Final Diagnosis Specimen A. SKIN, right ant deltoid: BASAL CELL CARCINOMA, SUPERFICIAL MULTIFOCAL (C44.612) 3 4:15 PM CDT DERMATOPATHOLOGY LABORATORY at 1615 CDT Clinical History [facility] Path#[id number] 3 4:15 PM CDT DERMATOPATHOLOGY LABORATORY Gross [...] characteristic determined by the Dermatopathology Laboratory at [facility], directed by Dr. Pallavi Flood. These tests need not be, and therefore are not, approved by the [place] Food and Drug Administration. The tests are used for clinical purposes. Billing Codes Specimen Charges Stain Charges 96580 1 3 4:15 PM CDT DERMATOPATHOLOGY LABORATORY Embedded Images 3 4:15 PM CDT DERMATOPATHOLOGY LABORATORY Pathology/Cytolo gy TISSUE SPECIMEN FROM SKIN / Unknown 12/17/2022 3:33 AM CDT 12/19/2022 6:19 AM CDT Jake Clemens MD LAB - PATHOLOGY/CYTOLOGY ORDER [place] Final Result DERMATOPATHOLOGY LABORATORY [facility] - Department of Dermatology [address] [place] [address], [facility] [phone] documented in this encounter Visit Diagnoses Not on filedocumented in this encounter
--- OUTSIDE RECORDS SUMMARY | 2024-12-09 07:21 | XMS_ITS | Encounter Summary ---
Author Organization [facility] Address [address] [place] [address] Care Team Providers Care Diesel Technician Mechanic Name Role Phone Unavailable Primary Care Provider Unavailabl e Encounter Details Date Type Department Care Team (Late st Contact Info) Description 10/02/2022 Lab Requisition [facility] - Derm[facility] Lab [address] [facility], [place] [phone] Jake Clemens MD [address] [address] Social History Tobacco Use Types Packs/Day [...] AM CDT) Case Report Dermatopathology Report Case: [id number] Authorizing Provider: Jake Clemens MD Collected: 09/30/2022 12:00 AM Ordering Location: [facility] Lab Received: 10/02/2022 10:20 AM Pathologist: [...] at 1101 CDT Clinical History A: [facility]. Path#[id number] B: [facility]. Path#[id number] 11:01 AM T DERMATOPATHOLOGY LABORATORY Gross Description [...] measuring 5x3x1 mm. Jar 0. 11:01 AM [facility] DERMATOPATHOLOGY LABORATORY Microscopic Description Specimen A. SKIN, right upper forehead: Within the dermis there are aggregates of basaloid cells with a high nuclear to cytoplasmic ratio and peripheral palisading. Specimen B. SKIN, right deltoid: Attached to the undersurface of the epidermis, there are small aggregates of basaloid cells with a high nuclear to cytoplasmic ratio and peripheral palisading. 11:01 AM [facility] DERMATOPATHOLOGY LABORATORY Disclaimer An external and internal positive and negative controls are appropriate for the histochemical, immunohistochemical and immunofluorescence stain(s) in this case (if any), except where stated explicitly. The performance characteristics of the stain(s) cited in this report were developed and its performance characteristic determined by the Dermatopathology Laboratory at [facility], directed by Dr. Pallavi Flood. These tests need not be, and therefore are not, approved by the [place] Food and Drug Administration. The tests are used for clinical purposes. Billing Codes Specimen Charges Stain Charges 98563 18159 1 1 3 11:01 AM T DERMATOPATHOLOGY LABORATORY Embedded Images 3 11:01 AM T DERMATOPATHOLOGY LABORATORY Pathology/Cytology TISSUE SPECIMEN FROM SKIN / Unknown 09/30/2022 10/02/2022 10:20 AM CDT Miscellaneous samples (specimen) TISSUE SPECIMEN FROM SKIN / Unknown 09/30/2022 10/02/2022 10:20 AM CDT us Jake Clemens MD LAB - PATHOLOGY/CYTOLOGY ORDER [place] Final Result DERMATOPATHOLOGY LABORATORY [facility] - Department of Dermatology [facility] [address] [place] [address], [address] [phone] documented in this encounter Visit Diagnoses Not on filedocumented in this encounter
--- OUTSIDE RECORDS SUMMARY | 2024-12-09 07:21 | XMS_ITS | Clinical Summary ---
Author Organization [facility] [employer] Address [address] [facility] [place] [address] Care Team Providers Care Geriatric Social Worker Name Role Phone Unavailable Primary Care Provider Unavailabl e Source Comments [facility] [employer],non-owned Affiliates and Associated Physician Practices is amultiple site organization consisting of ambulatory clinics and hospital sitesin [place], [place], [place] and [place]. This disclosure is being madepursuant to the Care Everywhere program and may not contain all information available regarding this patient. Last updated 18.[facility] [employer] Social History Tobacco Use Types Packs/Day Years [...] patient's age to [place] [address] MEDICARE [facility]
--- OUTSIDE RECORDS SUMMARY | 2024-12-09 07:21 | XMS_ITS | Clinical Summary ---
Author Organization [facility] HealthCare Care Team Providers Care Green Prize Packer Name Role Phone Len Chou DO Primary [...] Comments Blood Pressure 165/98 05/24/2024 11:07 AM RN BEHAVIORAL HEALTH Pulse 91 05/24/2024 11:07 AM RN BEHAVIORAL HEALTH Temperature - - Respiratory Rate - - Oxygen Saturation - - Inhaled Oxygen Concentration - - Weight 100.4 kg (221 lb 6.4 oz) 025 11:07 AM RN BEHAVIORAL HEALTH Height 188 cm (6' 2) 05/24/2024 11:07 AM RN BEHAVIORAL HEALTH Body Mass Index 28.43 05/24/2024 11:07 AM RN BEHAVIORAL HEALTH Plan of Treatment Health Maintenance Due Date [...] 02/22/2019 Zoster Vaccine Completed 12/20/2021, 08/08/2021 [place] [address] MEDICARE [facility] Address: [address] [address] [place] [address] [employer] MED[employer]ARE SUPPLEMENT Care Teams Green Prize Packer Relationship Specialty Start Date End Date Len Chou DO [address] [facility] [address] [place] [address] PCP - General Orthopedic Surgery 05/23/24
--- OUTSIDE RECORDS SUMMARY | 2024-12-09 07:21 | XMS_ITS | Referral Summary ---
Author Organization [facility] HealthCare Care Team Providers Care Ion Implant Machine Operator Name Role Phone Len Chou DO Primary [...] Comments Blood Pressure 165/98 05/24/2024 11:07 AM ADMINISTRATIVE CLERK Pulse 91 05/24/2024 11:07 AM ADMINISTRATIVE CLERK Temperature - - Respiratory Rate - - Oxygen Saturation - - Inhaled Oxygen Concentration - - Weight 100.4 kg (221 lb 6.4 oz) 025 11:07 AM ADMINISTRATIVE CLERK Height 188 cm (6' 2) 05/24/2024 11:07 AM ADMINISTRATIVE CLERK Body Mass Index 28.43 05/24/2024 11:07 AM ADMINISTRATIVE CLERK Plan of Treatment Not on file Insurance MEDICARE [place] MEDICARE SUPPLEMENT Care Teams Ion Implant Machine Operator Relationship Specialty Start Date End Date Len Chou DO [address] [facility] [address] [place] [place] [address] PCP - General Orthopedic Surgery 05/23/24
--- NOTE | 2024-12-09 07:32 | ED_ITS ---
HPI - General Adult General Chief complaint: Chest Pain Stated complaint: chest pain Time Seen by Provider: 12/09/24 06:56 History of Present Illness HPI narrative: 69-year-old male presenting to the emergency department for evaluation for left- sided chest pain. Does have history of hypertension pain on Thursday he did have exertional chest pain that occurred 4 times while running. When he started running the pain would worsen when he stops the pain 1 improved. Patient reports that he was sleeping this morning and had onset of left-sided chest pain. Patient reports initially the pain was a 10/10. Patient states the pain is now down to 2. Patient does have history of hypertension and this was thought to be secondary to worsening sleep apnea. Patient is chest starting to use a CPAP. Related Data Home Medications ?Medication ?Instructions ?Recorded ?Confirmed ?Last Taken ?Type fluticasone propionate 50 1 spray intranasal BID 09/05/20 09/14/20 09/14/20 History mcg/actuation nasal spray,suspension ketotifen fumarate 0.025 % (0.035 2 drp EACH EYE DAILY 09/05/20 09/14/20 09/13/20 History %) eye drops (Zaditor) Allergies Allergy/AdvReac Type Severity Reaction Status Date / Time No Known Allergies Allergy Verified 12/09/24 06:55 Review of Systems 2 Review of Systems: All systems reviewed & are unremarkable except as noted in HPI and below PMFSH Past Medical History Medical History Asthma Obstructive sleep apnea GERD (gastroesophageal reflux disease) Social History Social History Substance use type: does not use Living arrangements: with family Gender identity (if verbalized by the patient): Male Exam 2 Narrative: APPEARANCE: Well appearing, no pain, no distress, well-nourished. HEAD: normocephalic, atraumatic. EYES: PERRLA/EOMI, conjunctivae clear. NOSE: Normal no drainage EARS:TMS clear with good light reflex. THROAT: Pharynx clear, no exudate. NECK: Supple. No adenopathy, no masses. RESPIRATORY: Airway patent, respirations nonlabored. Clear to auscultation bilaterally, no rales, rhonchi, wheezing. CARDIOVASCULAR: Regular rate and rhythm without murmurs rubs or gallops. ABDOMINAL: Soft, nontender, nondistended, normal bowel sounds MUSCULOSKELETAL: Moves all extremities. Strength/ROM intact, No edema, No calf tenderness. NEURO: Alert. Cranial nerves II through XII intact. Grossly intact SKIN: Warm, dry. Normal Color Course Vital Signs Vital signs: Vital Signs Temperature 97.5 F L 12/09/24 06:58 Pulse Rate 53 L 12/09/24 06:58 Respiratory Rate 13 12/09/24 06:58 Blood Pressure 169/110 H 12/09/24 06:58 Pulse Oximetry 100 12/09/24 06:58 Oxygen Delivery Room Air 12/09/24 06:58 Temperature 97.9 F 12/09/24 08:31 Pulse Rate 53 L 12/09/24 08:31 Respiratory Rate 12 12/09/24 08:31 Blood Pressure 135/81 12/09/24 08:31 Pulse Oximetry 100 12/09/24 08:31 Oxygen Delivery Room Air 12/09/24 06:58 Medical Decision Making [facility] Narrative Medical decision making narrative: 61-year-old male present to the emergency department for evaluation for exertional angina. EKG showed no evidence of acute STEMI. Patient was afebrile with no leukocytosis hemoglobin of 14.5. Patient's D-dimer was not elevated patient has an INR of 1.0. Patient has no significant abnormalities on his CMP. Patient's initial troponin was elevated at 0.239. Patient's repeat troponin was mildly decreased. Case was discussed with Cardiology and patient was started on IV heparin bolus and infusion for concern for NSTEMI. Patient was also started on p.o. atorvastatin. Patient family were updated on the results of the workup and plan for admission. All questions concerns were addressed. Case was discussed with hospitalist patient was accepted to the IMU. Critical Care Procedure Note Authorized and Performed by: Francisco Fontaine Total critical care time: Approximately 36 minutes Due to a high probability of clinically significant, life threatening deterioration, the patient required my highest level of preparedness to intervene emergently and I personally spent this critical care time directly and personally managing the patient. This critical care time included obtaining a history; examining the patient; pulse oximetry; ordering and review of studies; arranging urgent treatment with development of a management plan; evaluation of patient's response to treatment; frequent reassessment; and, discussions with other providers. This critical care time was performed to assess and manage the high probability of imminent, life-threatening deterioration that could result in multi-organ failure. It was exclusive of separately billable procedures and treating other patients and teaching time. Please see MDM section and the rest of the note for further information on patient assessment and treatment. Differential Diagnosis Differential Diagnosis: Pneumonia, pneumothorax, ACS, STEMI, NSTEMI, COVID, RSV, influenza Vital Signs Vital Signs: Vital Signs Temperature 97.5 F L 12/09/24 06:58 Pulse Rate 53 L 12/09/24 06:58 Respiratory Rate 13 12/09/24 06:58 Blood Pressure 169/110 H 12/09/24 06:58 Pulse Oximetry 100 12/09/24 06:58 Oxygen Delivery Room Air 12/09/24 06:58 Temperature 97.9 F 12/09/24 08:31 Pulse Rate 53 L 12/09/24 08:31 Respiratory Rate 12 12/09/24 08:31 Blood Pressure 135/81 12/09/24 08:31 Pulse Oximetry 100 12/09/24 08:31 Oxygen Delivery Room Air 12/09/24 06:58 Lab Data Lab results reviewed: Yes I reviewed the patient's lab results. 12/09/24 07:11 12/09/24 07:11 Labs: Lab Results 12/09/24 Range/Units 07:11 WBC 6.1 (4.5-10.0) K/mm3 RBC 4.93 (4.6-6.20) M/mm3 Hgb 14.5 (14.0-18.0) g/dL Hct 43.7 (42.0-52.0) % MCV 88.6 (80-100) fl MCH 29.4 (26-34) pg MCHC 33.2 (32-36) g/dl RDW 13.1 (11.5-14.5) % Plt Count 247 (150-375) k/mm3 MPV 9.3 (7.4-10.4) fl Immature Gran % (Auto) 0.3 (0-0.5) % Neut % (Auto) 55.0 (45.5-73.1) % Lymph % (Auto) 33.3 (18.3-44.2) % [place] % (Auto) 7.2 (2.6-8.5) % Eos % (Auto) 3.0 (0-4.4) % Baso % (Auto) 1.2 (0.2-1.2) % Lymph # (Auto) 2.02 (0.9-3.2) K/mm3 [place] # (Auto) 0.4 (0.1-0.6) K/mm3 Eos # (Auto) 0.2 (0-0.3) K/mm3 Baso # (Auto) 0.1 (0.0-0.1) K/mm3 Abs Immat Gran (auto) 0.02 (0.00-0.031) K/mm3 Absolute Neuts (auto) 3.3 (1.3-6.7) K/mm3 Absolute Nucleated RBC 0.000 (0.0-0.012) K/mm3 Nucleated RBC % 0.0 (0.0-0.2) % PT 13.5 (11.1-14.7) Seconds INR 1.0 APTT 30.8 (22.3-36.8) Seconds D-Dimer 0.27 (<0.48) ug/mL Sodium 139 (137-145) mmol/L Potassium 3.9 (3.4-5.0) mmol/L Chloride 108 H (98-107) mmol/L Carbon Dioxide 23 (22-30) mmol/L Anion Gap 8 (4-12) mmol/L BUN 21 H (9-20) mg/dL Creatinine 0.98 (0.7-1.3) mg/dL Estim Creat Clear Calc 74 ml/min Estimated GFR > 60 (59 - ) Glucose 95 (65-110) mg/dL Calcium 9.4 (8.4-10.2) mg/dL Total Bilirubin 0.8 (0.2-1.3) mg/dL AST 35 (17-59) U/L ALT 28 (6-50) U/L Alkaline Phosphatase 55 (38-126) U/L Troponin I 0.239 H* (0.000-0.034) ng/mL Total Protein 7.4 (6.3-8.2) g/dL Albumin 4.2 (3.5-5.1) g/dL Imaging Data Radiologist's impression: Impressions Chest X-Ray 12/09/24 07:58 IMPRESSION: 1: NO ACUTE CARDIOPULMONARY DISEASE. ECG Data EKG #1: EKG Interpretation: bradycardia, sinus rhythm, no ectopy, no ST changes, normal QRS and NL axis Critical Care Time Critical Care Time Critical Care Time: Yes Total Critical Care Time: 36 Discharge Plan Discharge Clinical Impression: Chest pain, NSTEMI (non-ST elevated myocardial infarction) Patient Disposition: Still a Patient Condition: Serious Patient Language: Serbian Prescriptions: No Action ketotifen fumarate [Zaditor] 0.025 % (0.035 %) Drops 2 drp EACH EYE DAILY fluticasone propionate 50 mcg/actuation [place],Suspension 1 spray INTRANASAL BID Follow-up/Referrals: PHYSICIAN NOT ON STAFF,NONSTAFF [Primary Care Provider] -
[2024-12-09 07:43] LABS: INR 1.0; Prothrombin Time 13.5 Seconds (11.1-14.7)
[2024-12-09 07:44] LABS: Partial Thromboplastin Time 30.8 Seconds (22.3-36.8)
[2024-12-09 08:22] LABS: Alanine Aminotransferase 28 U/L (6-50); Albumin Level 4.2 g/dL (3.5-5.1); Alkaline Phosphatase 55 U/L (38-126); Anion Gap 8 mmol/L (4-12); Aspartate Amino Transferase 35 U/L (17-59); Bilirubin,Total 0.8 mg/dL (0.2-1.3); Blood Urea Nitrogen 21 mg/dL (9-20); Calcium 9.4 mg/dL (8.4-10.2); Carbon Dioxide 23 mmol/L (22-30); Chloride 108 mmol/L (98-107); Estimated CRCL calculation 74 ml/min; Estimated Glomerular Filt Rate > 60; Glucose 95 mg/dL (65-110); Potassium 3.9 mmol/L (3.4-5.0); Sodium 139 mmol/L (137-145); Total Protein 7.4 g/dL (6.3-8.2)
[2024-12-09 08:38] LABS: Troponin I 0.239 ng/mL (0.000-0.034)
--- NOTE | 2024-12-09 09:10 | PC.NURSE ---
Reports pain has returned and rates pain 310, ERP notified and gave verbal order for nitro
[2024-12-09] MEDS: NITROGLYCERIN SL 0.4 MG TABLET SUBLINGUAL (09:13)
[2024-12-09] MEDS: HEPARIN SOD/D5W 100 UNITS/ML 25,000 UNITS/250 ML BAG 10 UNITS IV CONT (09:13)
--- NOTE | 2024-12-09 09:46 | ECG_ITS ---
Test Date: 2024-12-09 09:53:49 Measurements Intervals [place] Rate: 47 P: 8 [place]: 188 QRS: -30 QRSD: 92 T: 24 QT: 444 QTc: 396 Interpretive Statements SINUS BRADYCARDIA BORDERLINE LEFT AXIS DEVIATION [QRS AXIS < -20] Compared to ECG 12/09/2024 07:03:45 No significant changes Electronically Signed On 12-10-2024 18:33:56 CDT by Nish Villareal M.D.
--- NOTE | 2024-12-09 09:46 | PC.NURSE ---
reports 1 nitro relieved pain
[2024-12-09 10:34] LABS: Troponin I 0.196 ng/mL (0.000-0.034)
[2024-12-09] MEDS: ATORVASTATIN 40 MG TABLET PO ×2 (10:34→21:36)
[2024-12-09] MEDS: LACTATED RINGERS 1,000 ML 125 ML IV CONT (11:47)
--- NOTE | 2024-12-09 11:56 | PM.CNCAR ---
Assessment and Plan Assessment and plan (1) NSTEMI (non-ST elevated myocardial infarction): Code(s): I21.4 - Non-ST elevation (NSTEMI) myocardial infarction Status: Acute Plan 61-year-old man with no significant past medical history presented with chest discomfort Non-STEMI -on heparin drip -continue aspirin and statin -heart rate will not tolerate beta blockade -we have discussed the risk and benefits as well as alternatives to cardiac catheterization in the context of his clinical presentation -after understanding the procedure as well as its risks, benefits, alternatives, he has decided to proceed with cardiac catheterization with possible PCI -obtain lipid panel and A1c -obtain echocardiogram -given NPO History of Present Illness History of Present Illness Consult date/time: 12/09/24 11:56 Requesting physician: Francisco Fontaine MD Reason For Visit: chest pain Narrative: 61-year-old man with no significant past medical history presented with chest discomfort. Described as chest pressure over his left side that started on Thursday. It occurred while he was running and as he decreased the speed at which he was running, the pain intensity lessened. It was not until he has rested and stop that the pain resolved. Whenever he did resume running, his chest pain would reoccur. He tried to run today again however the pain was much more severe in intensity compared to Thursday with much less exertion and intensity and exercise. Typically he runs twice a week for 6 miles without any cardiopulmonary limitations. This is new for him. Has no known risk factors. No previous vascular surgeries. Denies any shortness of breath. Pain significantly improved when he got here after sublingual nitroglycerin was given. Pain has resolved after sublingual nitroglycerin and rest. Review of Systems Cardiovascular: Cardiovascular: Reports as per HPI Respiratory: Respiratory: Reports as per HPI [facility] Past Medical History Medical History Asthma Obstructive sleep apnea GERD (gastroesophageal reflux disease) Social History Social History Substance use type: does not use Living arrangements: with family Gender identity (if verbalized by the patient): Male Meds Home Medications and Allergies Home Medications ?Medication ?Instructions ?Recorded ?Confirmed ?Type fluticasone propionate 50 1 spray intranasal BID 09/05/20 09/14/20 History mcg/actuation nasal spray,suspension ketotifen fumarate 0.025 % (0.035 2 drp EACH EYE DAILY 09/05/20 09/14/20 History %) eye drops (Zaditor) Allergies Allergy/AdvReac Type Severity Reaction Status Date / Time No Known Allergies Allergy Verified 12/09/24 06:55 Vital Signs Vital Signs - 24 hr 12/09/24 06:58 12/09/24 07:16 12/09/24 07:46 Temperature 36.4 C L 36.6 C 36.6 C Pulse Rate 53 L 52 L 50 L Respiratory Rate 13 14 14 Blood Pressure 169/110 H 150/105 H 141/95 H Pulse Oximetry 100 100 100 Oxygen Delivery Room Air 12/09/24 08:01 12/09/24 08:16 12/09/24 08:31 Temperature 36.6 C Pulse Rate 52 L 52 L 53 L Respiratory Rate 11 L 10 L 12 Blood Pressure 138/99 H 136/89 135/81 Pulse Oximetry 99 99 100 Oxygen Delivery 12/09/24 09:01 12/09/24 09:31 12/09/24 09:46 Temperature 36.6 C 36.6 C Pulse Rate 49 L 56 L 53 L Respiratory Rate 14 14 12 Blood Pressure 137/77 125/88 115/87 Pulse Oximetry 100 100 98 Oxygen Delivery Exam Const: General: comfortable HENMT: Mouth: Yes moist mucous membranes Eyes: EOM: EOMs intact bilaterally Neck: Neck: no JVD Resp: Effort & Inspection: normal respiratory effort Auscultation: clear to auscultation bilaterally Cardio: Rate: bradycardic Rhythm: regular rhythm GI: GI Palp: Yes Soft to palpation Neuro: Speech: normal speech Extrem: General: no pedal edema Results Labs and Meds 12/09/24 07:11 12/09/24 07:11 Lab results: Cardiac Enzymes 12/09/24 12/09/24 Range/Units 07:11 09:51 AST 35 (17-59) U/L Troponin I 0.239 H* 0.196 H* (0.000-0.034) ng/mL Coagulation 12/09/24 Range/Units 07:11 PT 13.5 (11.1-14.7) Seconds APTT 30.8 (22.3-36.8) Seconds CBC 12/09/24 Range/Units 07:11 WBC 6.1 (4.5-10.0) K/mm3 RBC 4.93 (4.6-6.20) M/mm3 Hgb 14.5 (14.0-18.0) g/dL Hct 43.7 (42.0-52.0) % Plt Count 247 (150-375) k/mm3 Lymph # (Auto) 2.02 (0.9-3.2) K/mm3 [place] # (Auto) 0.4 (0.1-0.6) K/mm3 Eos # (Auto) 0.2 (0-0.3) K/mm3 Baso # (Auto) 0.1 (0.0-0.1) K/mm3 Comprehensive Metabolic Panel 12/09/24 Range/Units 07:11 Sodium 139 (137-145) mmol/L Potassium 3.9 (3.4-5.0) mmol/L Chloride 108 H (98-107) mmol/L Carbon Dioxide 23 (22-30) mmol/L BUN 21 H (9-20) mg/dL Creatinine 0.98 (0.7-1.3) mg/dL Glucose 95 (65-110) mg/dL Calcium 9.4 (8.4-10.2) mg/dL AST 35 (17-59) U/L ALT 28 (6-50) U/L Alkaline Phosphatase 55 (38-126) U/L Total Protein 7.4 (6.3-8.2) g/dL Albumin 4.2 (3.5-5.1) g/dL Patient Weight 12/09/24 23:59 Weight 98.4 kg
--- NOTE | 2024-12-09 13:05 | WPDHPUPDATE1 ---
History and Physical Update Update Date/Time: 12/09/24 13:05 History and Physical has been reviewed, including an updated exam of the patient. There are NO changes in the patient's condition. Risks, benefits, and alternatives have been discussed and questions answered. Patient agrees to proceed with procedure.
--- NOTE | 2024-12-09 13:06 | WPDMODSED ---
Moderate Sedation Note-Pt Data Patient Data Allergies Allergy/AdvReac Type Severity Reaction Status Date / Time No Known Allergies Allergy Verified 12/09/24 06:55 Home Medications ?Medication ?Instructions ?Recorded ?Confirmed ?Type fluticasone propionate 50 1 spray intranasal BID 09/05/20 09/14/20 History mcg/actuation nasal spray,suspension ketotifen fumarate 0.025 % (0.035 2 drp EACH EYE DAILY 09/05/20 09/14/20 History %) eye drops (Zaditor) Current Medications: Active Medications Aspirin (Aspirin 81 Mg Chewable Tablet) 81 mg PO DAILY@0800 [facility] Atorvastatin Calcium (Atorvastatin 40 Mg Tablet) 40 mg PO DAILY [facility] Last Admin: 12/09/24 10:34 Dose: 40 mg Heparin Sodium (Porcine) (Heparin Sodium 5,000 Units/Ml Vial) 4,000 units IV PUSH PRN PRN PRN Reason: aPTT less than 55 seconds Heparin Sodium (Porcine) (Heparin Sodium 5,000 Units/Ml Vial) 4,000 units IV PUSH PRN PRN PRN Reason: aPTT 55 - 70 seconds Heparin Sodium/Dextrose (Heparin Sodium/D5w 100 Units/Ml) 25,000 units in 250 mls @ 10 mls/hr IV CONT .Q24H [facility]; Protocol Last Admin: 12/09/24 09:13 Dose: 1,000 units/hr, 10 mls/hr Lactated Ringer's (Lr - Lactated Ringers Iv) 1,000 mls @ 125 mls/hr IV CONT .Q8H [facility] Last Admin: 12/09/24 11:47 Dose: 125 mls/hr Perflutren Lipid Microsphere (Perflutren Lipid Microspheres 1.5 Ml Vial Diluted To 10 Ml Total Volume) 0 ml IV PUSH ONCE PRN; Protocol PRN Reason: adequate visualization Stop: 12/12/24 12:00 Sedation/Anesthesia: No previous sedation/anesthesia problems (including family history). PENDING SALE TO [facility] Past Medical History Medical History Asthma Obstructive sleep apnea GERD (gastroesophageal reflux disease) Social History Social History Substance use type: does not use Living arrangements: with family Gender identity (if verbalized by the patient): Male Mod Sed Physical Exam Physical Exam Pre Procedural Exam: Normal: Lungs, Heart Size and Heart Rhythm and Variation: Heart Rate (bradycardic) Hours since solid foods: 16 Hours since liquid intake: 12 Mallampati Classification: class II Internal Medicine - PN: Obj Da Vital Signs Vital Signs: Vital Signs - 24 hr 12/09/24 06:58 12/09/24 07:16 12/09/24 07:46 Temperature 36.4 C L 36.6 C 36.6 C Pulse Rate 53 L 52 L 50 L Respiratory Rate 13 14 14 Blood Pressure 169/110 H 150/105 H 141/95 H Pulse Oximetry 100 100 100 Oxygen Delivery Room Air 12/09/24 08:01 12/09/24 08:16 12/09/24 08:31 Temperature 36.6 C Pulse Rate 52 L 52 L 53 L Respiratory Rate 11 L 10 L 12 Blood Pressure 138/99 H 136/89 135/81 Pulse Oximetry 99 99 100 Oxygen Delivery 12/09/24 09:01 12/09/24 09:31 12/09/24 09:46 Temperature 36.6 C 36.6 C Pulse Rate 49 L 56 L 53 L Respiratory Rate 14 14 12 Blood Pressure 137/77 125/88 115/87 Pulse Oximetry 100 100 98 Oxygen Delivery Meds/Results Medications: Active Medications Generic Name Dose Route Start Last Admin Trade Name Freq PRN Reason Stop Dose Admin Aspirin 81 mg 12/10/24 08:00 Aspirin 81 Mg Chewable Tablet PO DAILY@0800 [facility] Atorvastatin Calcium 40 mg 12/09/24 09:00 12/09/24 10:34 Atorvastatin 40 Mg Tablet PO 40 mg DAILY [facility] Administration Heparin Sodium (Porcine) 4,000 units 12/09/24 08:40 Heparin Sodium 5,000 Units/Ml Vial IV PUSH PRN PRN aPTT less than 55 seconds Heparin Sodium (Porcine) 4,000 units 12/09/24 08:40 Heparin Sodium 5,000 Units/Ml Vial IV PUSH PRN PRN aPTT 55 - 70 seconds Heparin Sodium/Dextrose 25,000 units in 250 mls @ 10 mls/hr 12/09/24 08:40 12/09/24 09:13 Heparin Sodium/D5w 100 Units/Ml IV CONT 1,000 units/hr .Q24H DAKOTAH 10 mls/hr Administration Protocol 1,000 UNITS/HR Lactated Ringer's 1,000 mls @ 125 mls/hr 12/09/24 09:15 12/09/24 11:47 Lr - Lactated Ringers Iv IV CONT 125 mls/hr .Q8H DAKOTAH Administration Perflutren Lipid Microsphere 0 ml 12/09/24 12:00 Perflutren Lipid Microspheres 1.5 Ml Vial Diluted To 10 Ml Total Volume IV PUSH 12/12/24 12:00 ONCE PRN adequate visualization Protocol Radiology Results: ITS Impressions Chest X-Ray 12/09/24 07:58 IMPRESSION: 1: NO ACUTE CARDIOPULMONARY DISEASE. Labs 12/09/24 07:11 12/09/24 07:11 Labs: Laboratory Results - last 24 hr 12/09/24 12/09/24 07:11 09:51 WBC 6.1 RBC 4.93 Hgb 14.5 Hct 43.7 MCV 88.6 MCH 29.4 MCHC 33.2 RDW 13.1 Plt Count 247 MPV 9.3 Immature Gran % (Auto) 0.3 Neut % (Auto) 55.0 Lymph % (Auto) 33.3 [place] % (Auto) 7.2 Eos % (Auto) 3.0 Baso % (Auto) 1.2 Lymph # (Auto) 2.02 [place] # (Auto) 0.4 Eos # (Auto) 0.2 Baso # (Auto) 0.1 Abs Immat Gran (auto) 0.02 Absolute Neuts (auto) 3.3 Absolute Nucleated RBC 0.000 Nucleated RBC % 0.0 PT 13.5 INR 1.0 APTT 30.8 D-Dimer 0.27 Sodium 139 Potassium 3.9 Chloride 108 H Carbon Dioxide 23 Anion Gap 8 BUN 21 H Creatinine 0.98 Estim Creat Clear Calc 74 Estimated GFR > 60 Glucose 95 Calcium 9.4 Total Bilirubin 0.8 AST 35 ALT 28 Alkaline Phosphatase 55 Troponin I 0.239 H* 0.196 H* Total Protein 7.4 Albumin 4.2 ASA Classification/Sedation ASA Classification/Sedation ASA Class: III Emergent: No Risks: Risks, benefits and alternatives explained and patient/family accepted plan for sedation. Patient re-evaluated immediately prior to sedation.
--- NOTE | 2024-12-09 15:07 | WPDCARDPROC ---
Cardiac Cath Procedure Note Date of procedure:: 12/09/24 Performing physician:: CATHETERIZATION LABORATORY REPORT Procedure Date: 12/09/2024 Referring Physician: Dr. Fontaine Anesthesia: Versed and Fentanyl were ordered and given in my presence at 1342, procedure ended at 1502. Supervision of nurse, Rosalee Lovemarlon monitored moderate sedation with 2mg Versed and 100mcg Fentanyl was provided for 80 minutes. Pre-op Diagnosis: Non-STEMI Post-op Diagnosis: Non-STEMI Procedure(s): Left heart catheterization with coronary angiography Access Site: Right radial artery Brief History and Clinical Indications: 61-year-old man presented with chest discomfort was clinical presentation was consistent with non-STEMI is now here for cardiac catheterization with possible PCI. All risks, benefits and alternatives to left heart catheterization with or without percutaneous coronary intervention was discussed at length with the patient. Risk of complications including but not limited to bleeding, infection, arrhythmia, stroke, worsening kidney function, blood loss, groin hematoma, limb loss, emergency coronary artery bypass grafting, and even were discussed with the patient and all questions were answered. The patient understood and wished to proceed. Time out called, patient name, date of , medical record number, allergies, procedure performed, identify Glove Stitcher, patient and staff member concurred with accurate data, procedure carried on. Findings: LEFT HEART CATHETERIZATION FINDINGS: 1. Left main: The left main coronary artery is widely patent without any significant obstructive disease. 2. Left anterior descending: The LAD is occluded in the proximal body. 3. Left circumflex: The left circumflex artery is a large caliber vessel that provides 3 OM branches. This system has luminal irregularities without any high-grade angiographic stenosis. 4. Right coronary artery: The RCA is a large dominant vessel with diffuse 10% stenosis. The ostium of the PDA has 30% stenosis. 5. Left ventricle: A. End-diastolic pressure 20 mmHg. B. LV gram deferred. C. No significant gradient across aortic valve on catheter pullback. 6. Opening AO pressure 110/78 and closing AO pressure 135/79 Description of Procedure: Informed consent signed and placed in the chart. Patient transferred to supervisor dental laboratory room. Prepped and draped in usual sterile fashion. 2% lidocaine injected subcutaneously in right wrist area. 22-gauge venipuncture catheter used to access the right radial artery with the Seldinger technique. 6-FR slender sheath placed in right radial artery. Nitroglycerin 200mcg, Verapamil 2.5mg, and Heparin 5000U was given intraarterial through the sheath. J wire advanced under fluoroscopy 5F TIG diagnostic catheter engaged Left Main Coronary Artery. 5F TIG diagnostic catheter engaged Right Coronary Artery Multiple orthogonal angiogram obtained and reviewed 5F Pigtail catheter crossed aortic valve to obtain LVEDP, LV angiogram deferred. Procedure Description for PCI: Heparin was used for anticoagulation (ACT maintained above 250) Patient loaded with heparin at 70 units/kg. 6F EBU3.5 guide catheter was unable to engage the LMCA and was exchanged for an EBU 4.0 guide catheter which was able to engage the LMCA. 0.014 Runthrough coronary wire was passed in to the distal LAD. The lesion was pre-dilated with a 2.0x15 mm balloon inflated to high BETHANY. A 3.5 x 38mm [place] PAUL was successfully deployed into mid to proximal LAD. IVUS was then used to assess the stent and there appears to be significant plaque burden distal to the stent. The ostial diagonal branch was noted to be severely stenotic and thus, POBA was performed prior to proceed to overlap the stent distally with a 3.0 x 12mm [place] PAUL. The stents were post dilated with a 4.5 x 15mm NC to high bethany and IVUS reassessment was performed showing two areas that could be better apposed. A 4.5 x 12mm NC was used to post dilate these areas. Intracoronary NTG was administered. All intracoronary equipment was removed under fluoroscopy and follow-up angiograms showed an excellent result. Guide catheter was removed under fluoroscopy. Pre-procedure - DINORAH 0 flow Post-procedure - DINORAH 3 flow No angiographic complications identified. Assessment: Successful IVUS guided PCI of occluded proximal LAD with overlapping 3.0 x 12mm and 3.5 x 38mm [place] PAUL with excellent angiographic results. Post Operative Condition: Stable No significant blood loss Disposition: Floor Plan: The patient will be monitored in the recovery area. DAPT for 1 year followed by ASA indefinitely. Continue aggressive medical therapy and risk factor modification. Nish Villareal Interventional Cardiology
--- NOTE | 2024-12-09 17:57 | PC.NURSE ---
Stent card given to patient and at bedside. Education given about stent card.
--- NOTE | 2024-12-09 18:36 | PM.IMHP ---
H&P: HPI History of Present Illness Date/Time: 12/09/24 18:36 Chief Complaint: Chest pain Narrative: HPI narrative: 69-year-old male presenting to the emergency department for evaluation for left-sided chest pain. Does have history of hypertension pain on Thursday he did have exertional chest pain that occurred 4 times while running. When he started running the pain would worsen when he stops the pain 1 improved. Patient reports that he was sleeping this morning and had onset of left-sided chest pain. Patient reports initially the pain was a 10/10. Patient states the pain is now down to 2. Patient does have history of hypertension and this was thought to be secondary to worsening sleep apnea. Patient is chest starting to use a CPAP. patient with left sided chest pain and elevated tropes and EKG concerning for acute coronary artery disease, patient was seen by the sisal operator started patient on heparin, will be taken to cardiac microbiology lab analyst and further recommendation to follow, will monitor. [facility] Past Medical History Medical History Asthma Obstructive sleep apnea GERD (gastroesophageal reflux disease) Family History Family History (Updated 12/09/24 @ 17:40 by Nanette Lamb RN) Mother Skin cancer Mother Colon cancer Mother Breast cancer Sibling High cholesterol Social History Social History Smoking status: Never smoker Alcohol intake: current Substance use: never Substance use type: does not use Other substance usage details: occasional drink Do You Feel Safe in your Home?: Yes Lack of Transportation: No Lack of Food: Never True Current Housing: I Have Housing Concerned About Future Housing: No Difficulty Paying Gas/Electric Bills: No Difficulty Paying for Meds: No Currently Unemployed: No Education: Bachelor's Degree Difficulty w/ Childcare or Family Care: No Living arrangements: with family Gender identity (if verbalized by the patient): Male Spiritual care concerns: No Meds Home Medications and Allergies Home Medications ?Medication ?Instructions ?Recorded ?Confirmed ?Type fluticasone propionate 50 1 spray intranasal BID 09/05/20 12/09/24 History mcg/actuation nasal spray,suspension ketotifen fumarate 0.025 % (0.035 2 drp EACH EYE DAILY 04/21/21 07/25/25 History %) eye drops (Zaditor) Allergies Allergy/AdvReac Type Severity Reaction Status Date / Time No Known Allergies Allergy Verified 12/09/24 06:55 Vital Signs Vital Signs - 24 hr 12/09/24 06:58 12/09/24 07:16 12/09/24 07:46 Temperature 36.4 C L 36.6 C 36.6 C Pulse Rate 53 L 52 L 50 L Pulse Rate [Monitor] Respiratory Rate 13 14 14 Blood Pressure 169/110 H 150/105 H 141/95 H Pulse Oximetry 100 100 100 Oxygen Delivery Room Air 12/09/24 08:01 12/09/24 08:16 12/09/24 08:31 Temperature 36.6 C Pulse Rate 52 L 52 L 53 L Pulse Rate [Monitor] Respiratory Rate 11 L 10 L 12 Blood Pressure 138/99 H 136/89 135/81 Pulse Oximetry 99 99 100 Oxygen Delivery 12/09/24 09:01 12/09/24 09:31 12/09/24 09:46 Temperature 36.6 C 36.6 C Pulse Rate 49 L 56 L 53 L Pulse Rate [Monitor] Respiratory Rate 14 14 12 Blood Pressure 137/77 125/88 115/87 Pulse Oximetry 100 100 98 Oxygen Delivery 12/09/24 10:01 12/09/24 10:31 12/09/24 10:46 Temperature 36.6 C 36.7 C Pulse Rate 60 52 L 53 L Pulse Rate [Monitor] Respiratory Rate 13 14 13 Blood Pressure 128/86 126/86 132/89 Pulse Oximetry 100 99 Oxygen Delivery 12/09/24 11:01 12/09/24 11:31 12/09/24 11:46 Temperature 36.6 C 36.6 C Pulse Rate 53 L 48 L 49 L Pulse Rate [Monitor] Respiratory Rate 12 14 13 Blood Pressure 125/90 124/90 128/91 H Pulse Oximetry 100 100 100 Oxygen Delivery 12/09/24 12:01 12/09/24 12:31 12/09/24 13:01 Temperature 36.6 C 36.6 C 36.6 C Pulse Rate 45 L 47 L 55 L Pulse Rate [Monitor] Respiratory Rate 17 14 15 Blood Pressure 137/88 124/90 117/106 H Pulse Oximetry 98 100 98 Oxygen Delivery 12/09/24 15:25 12/09/24 15:25 12/09/24 15:40 Temperature Pulse Rate 36 L Pulse Rate [Monitor] 43 L 43 L Respiratory Rate 12 Blood Pressure 148/90 H Pulse Oximetry 100 Oxygen Delivery Room Air 12/09/24 15:40 12/09/24 15:55 12/09/24 15:55 Temperature Pulse Rate 43 L 42 L Pulse Rate [Monitor] 42 L Respiratory Rate 13 16 Blood Pressure 147/87 H 136/87 Pulse Oximetry 99 100 Oxygen Delivery Room Air Room Air 12/09/24 16:10 12/09/24 16:10 12/09/24 16:25 Temperature Pulse Rate 43 L Pulse Rate [Monitor] 43 L 47 L Respiratory Rate 12 Blood Pressure 142/96 H Pulse Oximetry 100 Oxygen Delivery Room Air 12/09/24 16:25 12/09/24 16:40 12/09/24 16:40 Temperature Pulse Rate 47 L 63 Pulse Rate [Monitor] 63 Respiratory Rate 18 22 H Blood Pressure 142/96 H 144/87 H Pulse Oximetry 100 100 Oxygen Delivery Room Air Room Air 12/09/24 16:55 12/09/24 16:55 12/09/24 17:10 Temperature Pulse Rate 44 L Pulse Rate [Monitor] 44 L 45 L Respiratory Rate 21 H Blood Pressure 153/90 H Pulse Oximetry 100 Oxygen Delivery Room Air 12/09/24 17:10 12/09/24 17:25 12/09/24 17:25 Temperature Pulse Rate 45 L 44 L Pulse Rate [Monitor] 45 L Respiratory Rate 20 21 H Blood Pressure 151/95 H 149/83 H Pulse Oximetry 100 100 Oxygen Delivery Room Air Room Air 12/09/24 17:40 12/09/24 17:40 12/09/24 17:55 Temperature Pulse Rate 56 L Pulse Rate [Monitor] 56 L 56 L Respiratory Rate 18 Blood Pressure 158/102 H Pulse Oximetry 100 Oxygen Delivery Room Air 12/09/24 17:55 Temperature Pulse Rate 56 L Pulse Rate [Monitor] Respiratory Rate 18 Blood Pressure 149/92 H Pulse Oximetry 100 Oxygen Delivery Room Air Exam Narrative: Patient is comfortable, NAD HEENT: eyes are clear and none icteric LUNGS:CTA HEART: RR S1S2 ABD: BS+, Soft and nontender Lower extremities: no edema SKIN: nonjaundiced Neuro: grossly intact. H&P: Results Labs Labs: Short CBC 12/09/24 Range/Units 07:11 WBC 6.1 (4.5-10.0) K/mm3 Hgb 14.5 (14.0-18.0) g/dL Hct 43.7 (42.0-52.0) % Plt Count 247 (150-375) k/mm3 BMP 12/09/24 07:11 Sodium 139 Potassium 3.9 Chloride 108 H Carbon Dioxide 23 BUN 21 H Creatinine 0.98 Glucose 95 Calcium 9.4 Cardiac Enzymes 12/09/24 12/09/24 Range/Units 07:11 09:51 Troponin I 0.239 H* 0.196 H* (0.000-0.034) ng/mL Liver Function 12/09/24 Range/Units 07:11 Total Bilirubin 0.8 (0.2-1.3) mg/dL AST 35 (17-59) U/L ALT 28 (6-50) U/L Alkaline Phosphatase 55 (38-126) U/L Albumin 4.2 (3.5-5.1) g/dL Assessment and Plan Assessment and plan (1) NSTEMI (non-ST elevated myocardial infarction): Code(s): I21.4 - Non-ST elevation (NSTEMI) myocardial infarction Status: Acute (2) Chest pain: Code(s): R07.9 - Chest pain, unspecified Status: Acute (3) Obstructive sleep apnea: Code(s): G47.33 - Obstructive sleep apnea (adult) (pediatric) Status: Acute Plan patient with left sided chest pain and elevated tropes and EKG concerning for acute coronary artery disease, patient was seen by the sisal operator started patient on heparin, will be taken to cardiac microbiology lab analyst and further recommendation to follow, will monitor.
[2024-12-09] MEDS: SODIUM CHLORIDE 0.9% IV 1,000 ML 125 ML IV CONT (19:30)
[2024-12-09] MEDS: TICAGRELOR 90 MG TABLET PO (21:36)
--- NOTE | 2024-12-09 22:37 | ADMGEN ---
This patient, Jose C Preciado, was admitted to IMU Room 231-01 on 12/09/24 at 1737. Patient/family oriented to hospital policies and general routines including ID bracelet, bed and alarms, visiting hours, pain management, procedures, bathroom and other care routines, personal items, smoking policy, room service/diet, and visiting hours. Information on how to activate the Rapid Response Team has been discussed. Patient/Family are encouraged to report perceived risks to care and to ask questions if they do not understand what they are told or what they should do.
[2024-12-10] VITALS (10 sets, daily range): BP systolic 141–146; BP diastolic 85–90; PULSE 46–65; RESP 12–18; TEMP 36.6–37.1; O2SAT 97–100
--- NOTE | 2024-12-10 | ECHO_ITS ---
Patient Info Name: Jose C Preciado Age: 69 years : 1955 Gender: Male Ht: 74 in Wt: 216 lbs BSA: 2.28 m2 HR: 61 bpm BP: 115 / 87 mmHg Technical Quality: Good Exam Date: 12/10/2024 8:37 AM Patient Status: I Admit Date: 12/09/2024 Exam Type: CA echo doppler color flow Complete two-dimensional, color flow and Doppler transthoracic echocardiogram is performed. Staff Referring Physician: Francisco Fontaine Manager Intensive Care: Keri Wiseman Attending Provider: Cuco Diaz MD Summary 1. Complete two-dimensional, color flow and Doppler transthoracic echocardiogram is performed. 2. There is normal biventricular size and systolic function. 3. There is mild biatrial enlargement. 4. The aortic valve is not well visualized. Otherwise, no significant valvular abnormalities in this particular study. Left Ventricle The left ventricle is normal in size and systolic function. The left ventricular ejection fraction is visually estimated to be 60-65%. There are no regional wall motion abnormalities. Right Ventricle The right ventricle is normal in size and systolic function. Left Atria The left atrium is mildly dilated. Right Atria The right atrium is mildly dilated. Atrial Septum The atrial septum is intact. Aortic Valve The aortic valve is not well visualized. There is no hemodynamically significant aortic stenosis by echocardiographic criteria. Pulmonic Valve The pulmonic valve is not well visualized. Mitral Valve The mitral valve is normal. There is no mitral regurgitation. Tricuspid Valve The tricuspid valve is normal. There is no tricuspid regurgitation. Pericardium/Pleural Pericardium is normal in appearance with no evidence for significant pericardial effusion. Inferior Vena Cava Normal inferior vena cava with >50% collapse upon inspiration consistent with normal right atrial pressure, 3 mmHg. Aorta The aortic root the level of the sinus of Valsalva measures 3.6 cm in diameter. Left Ventricular Outflow Tract Name Value Normal LVOT 2D LVOT Diameter 2.4 cm LVOT Doppler LVOT Peak Velocity 138 cm/s LVOT Peak Gradient 8 mmHg LVOT Mean Gradient 3 mmHg LVOT VTI 29 cm LVOT Stroke Volume 129 ml LVOT CO 7.9 l/min LVOT CI 3.5 l/min/m2 Pulmonic Valve Name Value Normal RVOT Doppler RVOT Peak Velocity 57 cm/s RVOT Peak Gradient 1 mmHg PV Doppler PV Peak Velocity 120 cm/s PV Peak Gradient 6 mmHg Mitral Valve Name Value Normal MV Diastolic Function MV E Peak Velocity 71 cm/s MV A Peak Velocity 88 cm/s MV E/A 0.8 MV Decel Time (PW) 326 ms MV Annular TDI MV E/e' (Septal) 11.3 MV E/e' (Lateral) 5.2 MV E/e' (Average) 8.3 Tricuspid Valve Name Value Normal Estimated PAP/RSVP RA Pressure 3 mmHg <=5 Aortic Valve Name Value Normal AV Doppler AV Peak Velocity 160 cm/s AV Peak Gradient 10 mmHg AV Area (Cont Eq Louis) 3.8 cm2 AV DI (Louis) 0.86 AV Regurgitation 2D LVOT Area 4.5 cm2 Ventricles Name Value Normal LV Dimensions 2D/MM IVS Diastolic Thickness (2D) 1.2 cm 0.6-1.0 LVID Diastole (2D) 5.0 cm 4.2-5.8 LVIW Diastolic Thickness (2D) 1.3 cm 0.6-1.0 LVID Systole (2D) 3.1 cm 2.5-4.0 LVOT Diameter 2.4 cm LV Mass (2D Cubed) 242.07 g 88.00-224.00 LV Mass Index (2D Cubed) 106 g/m2 49-115 Relative Wall Thickness (2D) 0.52 <=0.42 LV Fractional Shortening/Ejection Fraction 2D/MM LV Fractional Shortening (2D) 38 % 25-43 LV EF (2D Teichclaudiaz) 68 % LV Diastolic Volume (4C MOD) 182 ml LV EF (4C MOD) 64 % LV Diastolic Volume (2C MOD) 148 ml LV EF (2C MOD) 59 % LV Diastolic Volume (BP MOD) 175 ml 62-150 LV Diastolic Volume Index (BP MOD) 77 ml/m2 34-74 LV Systolic Volume (BP MOD) 66 ml 21-61 LV Systolic Volume Index (BP MOD) 29 ml/m2 11-31 LV EF (BP MOD) 62 % 52-72 LV Diastolic Length (4C) 10.2 cm LV Systolic Length (4C) 8.4 cm LV Stroke Volume (4C MOD) 117 ml Atria Name Value Normal LA Dimensions LA Volume (4C A-L) 80 ml LA Volume (BP A-L) 78 ml RA Dimensions RA Systolic [place] Length (4C) 6.3 cm 2.1-2.7 RA Area (4C) 24.5 cm2 <=18.0 Report Signatures
[2024-12-10 04:28] LABS: Hematocrit 39.7 % (42.0-52.0); Hemoglobin 13.0 g/dL (14.0-18.0); Immature Granulocyte Percent A 0.4 % (0-0.5); Lymphocytes Absolute Auto 1.22 K/mm3 (0.9-3.2); Mean Corpuscular HGB Conc 32.7 g/dl (32-36); Mean Corpuscular Hemoglobin 29.5 pg (26-34); Mean Corpuscular Volume 90.0 fl (80-100); Nucleated Red Blood Cells Absolute Auto 0.000 K/mm3 (0.0-0.012); Nucleated Red Blood Cells Perc 0.0 % (0.0-0.2); Platelet Count Result 209 k/mm3 (150-375); Red Blood Count 4.41 M/mm3 (4.6-6.20); White Blood Count 8.1 K/mm3 (4.5-10.0)
[2024-12-10] MEDS: TICAGRELOR 90 MG TABLET PO (09:37)
[2024-12-10] MEDS: ASPIRIN 81 MG ENTERIC TABLET PO (09:37)
[2024-12-10 09:46] LABS: Anion Gap 7 mmol/L (4-12); Blood Urea Nitrogen 17 mg/dL (9-20); Calcium 8.8 mg/dL (8.4-10.2); Carbon Dioxide 22 mmol/L (22-30); Chloride 107 mmol/L (98-107); Estimated CRCL calculation 78 ml/min; Estimated Glomerular Filt Rate > 60; Glucose 94 mg/dL (65-110); Magnesium 2.2 mg/dL (1.6-2.3); Potassium 4.2 mmol/L (3.4-5.0); Sodium 136 mmol/L (137-145)
--- NOTE | 2024-12-10 17:08 | P.DS_ITS ---
DS: Admitting Diagnosis Discharge Date 12/10/24 Admitting Diagnosis Chest pain DS: Discharge Diagnosis Discharge Diagnosis (1) NSTEMI (non-ST elevated myocardial infarction): Code(s): I21.4 - Non-ST elevation (NSTEMI) myocardial infarction Status: Acute (2) Chest pain: Code(s): R07.9 - Chest pain, unspecified Status: Acute (3) Obstructive sleep apnea: Code(s): G47.33 - Obstructive sleep apnea (adult) (pediatric) Status: Acute Plan patient with left sided chest pain and elevated tropes and EKG concerning for acute coronary artery disease, patient was seen by the restaurant busser started patient on heparin, will be taken to cardiac cleaner laboratory equipment and further recommendation to follow, will monitor. DS: Summary Hospital Course Hospital Course: patient with left sided chest pain and elevated tropes and EKG concerning for acute coronary artery disease, patient was seen by the restaurant busser started patient on heparin, will be taken to cardiac cleaner laboratory equipment and further recommendation to follow, will monitor. Patient was taken to cardiac cleaner laboratory equipment and had successful IVUS guided PCI of occluded proximal LAD with overlapping 3.0 x 12mm and 3.5 x 38mm [place] PAUL with excellent angiographic results. today patient is clinically stable, was seen by his restaurant busser, his chest pain is resolved, will discharge patient today. Time Spent with Patient Time attestation: Total time spent providing and/or coordinating discharge services: Exam Narrative: Patient is comfortable, NAD HEENT: eyes are clear and none icteric LUNGS:CTA HEART: RR S1S2 ABD: BS+, Soft and nontender Lower extremities: no edema SKIN: nonjaundiced Neuro: grossly intact. DS: Data Data Completed and Pending Labs on day of discharge: Labs from last 24 hours 12/10/24 04:00 WBC 8.1 RBC 4.41 L Hgb 13.0 L Hct 39.7 L MCV 90.0 MCH 29.5 MCHC 32.7 RDW 13.2 Plt Count 209 MPV 9.4 Immature Gran % (Auto) 0.4 Neut % (Auto) 75.1 H Lymph % (Auto) 15.1 L [place] % (Auto) 7.1 Eos % (Auto) 1.7 Baso % (Auto) 0.6 Lymph # (Auto) 1.22 [place] # (Auto) 0.6 Eos # (Auto) 0.1 Baso # (Auto) 0.1 Abs Immat Gran (auto) 0.03 Absolute Neuts (auto) 6.1 Absolute Nucleated RBC 0.000 Nucleated RBC % 0.0 Sodium 136 L Potassium 4.2 Chloride 107 Carbon Dioxide 22 Anion Gap 7 BUN 17 Creatinine 0.93 Estim Creat Clear Calc 78 Estimated GFR > 60 Glucose 94 Calcium 8.8 Magnesium 2.2 Discharge Plan Discharge Attending physician on discharge: Cuco Diaz Consulting providers: Nish Villareal; Ramon Heard Discharging Clinician: Cuco Diaz Patient Disposition: Home Activity: as tolerated Diet: heart healthy Discharge Instructions: [facility] [address] [place] [address] DISCHARGE INSTRUCTIONS - POST PCI Activity 1. No driving until . 2. No lifting, pushing or pulling more than 10 pounds for 1 week. 3. No strenuous exercise or activity (including sexual activity) until you are released to do so. 4. May shower but no tub baths or swimming pool for 1 week. Avoid commercial hot tubs. They are too hot. Medications DO NOT STOP YOUR MEDICATIONS ONLY YOUR METALWORKING SPECIALIST CAN STOP THE FOLLOWING MEDICATIONS - PLEASE CALL THE OFFICE WITH QUESTIONS. *Aspirin *Ticagrelor (Brilinta) *Atorvastatin *Lisinopril or ARB *Metoprolol tartrate or succinate *Clopidogrel (Plavix) *Prasugrel (Effient) Important Reminders 1. Keep your stent card in your wallet at all times 2. Follow a heart healthy diet paying extra attention to cholesterol and fats. 3. Stay hydrated. 4. If you have chest pain unrelieved by rest or nitroglycerin (if prescribed) call 911 immediately. 5. If you miss one dose of Brilinta (if prescribed) take a tablet at the next time due. If you miss 2 doses take a tablet when you remember and resume at the next time due. *For any other questions please call the office at [phone]. Office hours are 8AM 4:30PM Thursday through Thursday. Patient to follow discharge care instruction from his restaurant busser and follow up as scheduled, patient to follow up with his primary care provider as soon as possible, patient is instructed if symptoms redevelop to go to nearest ER. Patient Instructions: Antibiotic Form, Aspirin (By mouth), Atorvastatin (By mouth), Ticagrelor (By mouth), Heart Attack (GEN), Heart Healthy Diet (GEN), Blood Thinners (GEN), After Radial Heart Catheterization (GEN), Left Heart Catheterization (GEN) Patient Language: Nepali Stand Alone Forms: General Discharge Information Follow-up/Referrals: Kayce Phillips [Other] Nish Villareal MD [Physician] - Discharge Medications: New ticagrelor [Brilinta] 90 mg Tablet 90 mg PO Q12HR 30 Days Qty: 60 0RF atorvastatin 40 mg Tablet 40 mg PO QHS Qty: 90 3RF aspirin 81 mg Tablet,Delayed Release (Dr/Ec) 81 mg PO QAM Qty: 90 3RF Continued ketotifen fumarate [Zaditor] 0.025 % (0.035 %) Drops 2 drp EACH EYE DAILY fluticasone propionate 50 mcg/actuation [place],Suspension 1 spray INTRANASAL BID Date of admission: 12/09/24 11:28 Primary Care Provider: Kayce Phillips Admitting Provider: Cuco Diaz Attending physician on admission: Cuco Diaz Condition: Stable
--- NOTE | 2024-12-10 17:35 | P.PNCA_ITS ---
Progress Note: A&P Assessment and Plan (1) NSTEMI (non-ST elevated myocardial infarction): Code(s): I21.4 - Non-ST elevation (NSTEMI) myocardial infarction Status: Acute (2) Hyperlipidemia: Code(s): E78.5 - Hyperlipidemia, unspecified Status: Acute (3) Hypertension: Code(s): I10 - Essential (primary) hypertension Status: Acute Plan 69-year-old man with obstructive sleep apnea presented with chest pain whose clinical presentation was consistent with non-STEMI Non-STEMI -status post PCI to an occluded proximal LAD -can be discharged on aspirin 81 mg p.o. daily and ticagrelor 90 mg p.o. b.i.d. Hyperlipidemia -can be discharged on atorvastatin 40 mg every evening Hypertension -was recently diagnosed with sleep apnea for which she will be utilizing CPAP machine -outpatient reassessment to determine if lisinopril 5 mg p.o. daily should be added to his regimen My office will reach out to him for an appointment in the next 2-3 weeks where we will set him up for cardiac rehab. Cardiology will sign off. Subjective Date/time seen: 12/10/24 17:35 Interval history: No chest pain. Feels well Review of Systems Cardiovascular: Cardiovascular: Reports as per HPI Respiratory: Respiratory: Reports as per HPI Exam Const: General: comfortable HENMT: Mouth: Yes moist mucous membranes Eyes: EOM: EOMs intact bilaterally Neck: Neck: no JVD Resp: Effort & Inspection: normal respiratory effort Auscultation: clear to auscultation bilaterally Cardio: Rate: bradycardic Rhythm: regular rhythm Extrem: General: no pedal edema Objective Data Vital Signs Vital Signs: Vital Signs - 24 hr 12/09/24 17:40 12/09/24 17:40 12/09/24 17:55 Temperature Pulse Rate 56 L Pulse Rate [Monitor] 56 L 56 L Respiratory Rate 18 Blood Pressure 158/102 H Pulse Oximetry 100 Oxygen Delivery Room Air 12/09/24 17:55 12/09/24 18:10 12/09/24 18:10 Temperature Pulse Rate 56 L 53 L Pulse Rate [Monitor] 53 L Respiratory Rate 18 20 Blood Pressure 149/92 H 139/85 Pulse Oximetry 100 100 Oxygen Delivery Room Air Room Air 12/09/24 18:25 12/09/24 18:25 12/09/24 18:40 Temperature Pulse Rate 65 Pulse Rate [Monitor] 65 61 Respiratory Rate 18 Blood Pressure 153/93 H Pulse Oximetry 100 Oxygen Delivery Room Air 12/09/24 18:40 12/09/24 18:55 12/09/24 18:55 Temperature Pulse Rate 61 57 L Pulse Rate [Monitor] 57 L Respiratory Rate 20 18 Blood Pressure 148/86 H 146/79 H Pulse Oximetry 100 100 Oxygen Delivery Room Air Room Air 12/09/24 19:10 12/09/24 19:10 12/09/24 19:25 Temperature Pulse Rate 59 L Pulse Rate [Monitor] 59 L 63 Respiratory Rate 20 Blood Pressure 134/86 Pulse Oximetry 99 Oxygen Delivery Room Air 12/09/24 19:25 12/09/24 19:40 12/09/24 19:40 Temperature Pulse Rate 63 57 L Pulse Rate [Monitor] 57 L Respiratory Rate 20 20 Blood Pressure 149/86 H 153/68 H Pulse Oximetry 99 99 Oxygen Delivery Room Air Room Air 12/09/24 20:00 12/09/24 20:00 12/09/24 20:00 Temperature 36.6 C Pulse Rate 59 L 57 L Pulse Rate [Monitor] Respiratory Rate 16 Blood Pressure 138/81 Pulse Oximetry 100 Oxygen Delivery Room Air 12/09/24 22:00 12/09/24 23:49 12/10/24 00:00 Temperature 36.6 C Pulse Rate 47 L 58 L Pulse Rate [Monitor] Respiratory Rate 16 Blood Pressure 142/92 H Pulse Oximetry 99 Oxygen Delivery Room Air 12/10/24 00:00 12/10/24 02:00 12/10/24 04:00 Temperature 36.6 C Pulse Rate 46 L 62 56 L Pulse Rate [Monitor] Respiratory Rate 16 Blood Pressure 143/89 H Pulse Oximetry 100 Oxygen Delivery 12/10/24 04:00 12/10/24 04:00 12/10/24 06:00 Temperature Pulse Rate 53 L 50 L Pulse Rate [Monitor] Respiratory Rate Blood Pressure Pulse Oximetry Oxygen Delivery Room Air 12/10/24 08:00 12/10/24 08:00 12/10/24 08:00 Temperature 36.8 C Pulse Rate 62 65 Pulse Rate [Monitor] Respiratory Rate 18 Blood Pressure 146/85 H Pulse Oximetry 97 97 Oxygen Delivery Room Air 12/10/24 10:00 12/10/24 11:27 12/10/24 12:00 Temperature 37.1 C Pulse Rate 60 56 L Pulse Rate [Monitor] Respiratory Rate 18 Blood Pressure 141/90 H Pulse Oximetry 99 99 Oxygen Delivery Room Air 12/10/24 12:00 12/10/24 16:00 Temperature 37.1 C Pulse Rate 55 L 60 Pulse Rate [Monitor] Respiratory Rate 12 Blood Pressure 145/88 H Pulse Oximetry 98 Oxygen Delivery Intake/Output Intake/Output: Intake & Output 12/07/24 12/08/24 12/09/24 12/10/24 23:59 23:59 23:59 23:59 Intake Total 240 1580 Output Total 300 Balance -60 1580 Meds/Results Medications: Active Medications Generic Name Dose Route Start Last Admin Trade Name Freq PRN Reason Stop Dose Admin Aspirin 81 mg 12/10/24 09:00 12/10/24 09:37 Aspirin 81 Mg Enteric Tablet PO 81 mg QAM DAKOTAH Administration Atorvastatin Calcium 40 mg 12/09/24 21:00 12/09/24 21:36 Atorvastatin 40 Mg Tablet PO 40 mg QHS DAKOTAH Administration Fluticasone Propionate 1 spray 12/10/24 17:00 Fluticasone Propionate 0.05% Na Spr 16 Gm Btl (*Bkc) NASAL BID [facility] Miscellaneous Information 1 each 12/11/24 00:01 Order Clarification -Ketotifen Fumarate [Zaditor] 0.025 % Drops XX 01/10/25 00:00 CLARIFY [facility] Non-Formulary Medication 2 drop 12/11/24 09:00 Ketotifen Fumarate [Zaditor] EACH EYE 01/10/25 08:59 DAILY DAKOTAH Perflutren Lipid Microsphere 0 ml 12/09/24 12:00 Perflutren Lipid Microspheres 1.5 Ml Vial Diluted To 10 Ml Total Volume IV PUSH 12/12/24 12:00 ONCE PRN adequate visualization Protocol Ticagrelor 90 mg 12/09/24 21:00 12/10/24 09:37 Ticagrelor 90 Mg Tablet PO 90 mg Q12HR DAKOTAH Administration Radiology Results: ITS Impressions Chest X-Ray 12/09/24 07:58 IMPRESSION: 1: NO ACUTE CARDIOPULMONARY DISEASE. Labs Labs: Laboratory Results - last 24 hr 12/10/24 04:00 WBC 8.1 RBC 4.41 L Hgb 13.0 L Hct 39.7 L MCV 90.0 MCH 29.5 MCHC 32.7 RDW 13.2 Plt Count 209 MPV 9.4 Immature Gran % (Auto) 0.4 Neut % (Auto) 75.1 H Lymph % (Auto) 15.1 L [place] % (Auto) 7.1 Eos % (Auto) 1.7 Baso % (Auto) 0.6 Lymph # (Auto) 1.22 [place] # (Auto) 0.6 Eos # (Auto) 0.1 Baso # (Auto) 0.1 Abs Immat Gran (auto) 0.03 Absolute Neuts (auto) 6.1 Absolute Nucleated RBC 0.000 Nucleated RBC % 0.0 Sodium 136 L Potassium 4.2 Chloride 107 Carbon Dioxide 22 Anion Gap 7 BUN 17 Creatinine 0.93 Estim Creat Clear Calc 78 Estimated GFR > 60 Glucose 94 Calcium 8.8 Magnesium 2.2
== END 2024-12-10 17:56 | disposition home or self-care (01) | DRG 322 ==
LOC: ANHED 14:38 → ANHIMU 17:36
PROVIDERS: Internal Medicine; Admitting Provider Family Medicine; Emergency Provider Emergency Medicine; Visit Provider Family Medicine
PROC: 4A023N7 Measurement of Cardiac Sampling and Pressure, Left Heart, Percutaneous Approach (ICD-10-PCS; CPT 93452; principal; 2024-12-09 12:30)
PROC: 4A023N7 Measurement of Cardiac Sampling and Pressure, Left Heart, Percutaneous Approach (ICD-10-PCS; 2024-12-09 12:30)
PROC: 4A023N7 Measurement of Cardiac Sampling and Pressure, Left Heart, Percutaneous Approach (ICD-10-PCS; 2024-12-09 12:30)
DX: I21.4 Non-ST elevation (NSTEMI) myocardial infarction (principal); E78.5 Hyperlipidemia, unspecified; I10 Essential (primary) hypertension; G47.33 Obstructive sleep apnea (adult) (pediatric); J45.909 Unspecified asthma, uncomplicated; K21.9 Gastro-esophageal reflux disease without esophagitis
CPT/HCPCS: 36415; 71046; 80048; 80053; 83735; 84484; 85025; 85380; 85610; 85730; 92978; 93005; 93306; 93458; 96365; 96375; 99291; A9270; C1725; C1753; C1769; C1874; C1887; C1894; C9600; J0461; J1644; J2003; J2250; J2305; J3010; J7030; J7040; J7120

== ENCOUNTER 2025-02-22 08:45 | Outpatient (RCR) | payer MEDICARE, SELFPAY | END 2025-02-22 10:27 | disposition home or self-care (01) | LOC: ANHCPREHAB 08:45 | PROVIDERS: Visit Provider Internal Medicine | DX: Z95.5 Presence of coronary angioplasty implant and graft (principal) | CPT/HCPCS: 93798 ==